=== PATIENT | male | born 1930 | race Caucasian/White ===

== ENCOUNTER 2017-09-25 10:06 | Day surgery (SDC) | payer MEDICARE ==
[~2017-09-25 10:06] MED LIST: DIPHENHYDRAMINE HCL 50 MG/ML VIAL ONE; EPINEPHRINE INJ 1 MG/10 ML DISP.SYRIN ONE; FLUMAZENIL INJ 0.5 MG/5 ML VIAL ONE; GLUCAGON,HUMAN RECOMB 1 MG INJ ONE; NALOXONE HCL INJ/PF 0.4 MG/1 ML SDV ONE; ONDANSETRON HCL INJ/PF 4 MG/2 ML SDV ONE
[2017-09-25] MEDS: MIDAZOLAM 2 MG/2 ML INJ ONE ×3 (10:56→11:04)
[2017-09-25] MEDS: FENTANYL CITRATE INJ/PF 100 MCG/2 ML AMPUL ONE ×2 (10:58→11:00)
[2017-09-25 12:53] VITALS: BP 132/59
--- NOTE | 2017-09-25 13:58 | Operative Report ---
Operative Report DATE OF SURGERY: 09/25/17 Operative Report: The risks, benefits and alternatives of the procedure including risks of bleeding, perforation requiring surgery are explained to the patient in detail and informed consent is obtained. Patient is brought to the endoscopy suite and placed in a left, lateral decubital position. Conscious sedation medications are provided. A rectal examination is done which did not reveal any masses, tears or fissures. An Olympus videoscope was inserted into the patient's rectum. The scope was then carefully advanced all the way to the cecum. The cecum was identified by the usual anatomical landmarks including the ileocecal valve as well as the appendiceal office. Photodocumentation is obtained. The scope was then sequentially pulled back via the various segments of the colon including the ascending colon, hepatic flexure, transverse colon, splenic flexure, descending colon and finding to the rectosigmoid portions of the colon. Retroflexion maneuvers performed. PREOPERATIVE DIAGNOSIS: Weight loss abnormal CT scan POSTOPERATIVE DIAGNOSIS: Unusual turn at the area of the hepatic flexure likely accounting for the thickening that is seen on CT scan. Diverticulosis. Colon polyp noted at the junction of the sigmoid and descending colon removed via snare polypectomy and retrieved. Internal hemorrhoids. Colon mass noted at 20 cm, nonobstructing. Status post biopsy. Status post injection of Jennifer ink both proximal and distal to the lesion. OPERATION: Colonoscopy with snare polypectomy. Colonoscopy with submucosal injection. Colonoscopy with biopsy SURGEON: ABEL MARR ANESTHESIA: Moderate Sedation - 4 mg of Versed, 25 mcg of fentanyl. Conscious sedation monitoring time 30 minutes. TISSUE REMOVED OR ALTERED: As noted above. COMPLICATIONS: None. ESTIMATED BLOOD LOSS: None. INTRAOPERATIVE FINDINGS: As noted above. PROCEDURE: Patient tolerated procedure well. No immediate postprocedure comp occasions are noted. Patient discharged in good condition. Discharge date 09/25/2017. Discharge diet: Regular. Discharge activity: Regular. 2-3 week follow-up to discuss findings. We will wait on the pathology. We will need surgical referral. Patient is instructed call the office or proceed to the emergency room should there be any further problems or questions. Metastatic workup is indicated.
== END 2017-09-25 12:40 | disposition home or self-care (01) ==
LOC: END 10:06
PROVIDERS: ATTEND Internal Medicine Gastroenterology
PROC: 0DBM8ZX Excision of Descending Colon, Via Natural or Artificial Opening Endoscopic, Diagnostic (ICD-10-PCS; principal; 2017-09-25 10:30)
PROC: 0DBN8ZX Excision of Sigmoid Colon, Via Natural or Artificial Opening Endoscopic, Diagnostic (ICD-10-PCS; 2017-09-25 10:30)
PROC: 3E0H8GC Introduction of Other Therapeutic Substance into Lower GI, Via Natural or Artificial Opening Endoscopic (ICD-10-PCS; 2017-09-25 10:30)
DX: C18.7 Malignant neoplasm of sigmoid colon (principal); K63.5 Polyp of colon; K57.30 Diverticulosis of large intestine without perforation or abscess without bleeding; K64.8 Other hemorrhoids; R93.8 Abnormal findings on diagnostic imaging of other specified body structures; R63.4 Abnormal weight loss; I10 Essential (primary) hypertension; Z68.22 Body mass index [BMI] 22.0-22.9, adult
CPT/HCPCS: 45380; 45385; 45381; 88305 ×2; J2250; J3010; J0171; J1200; J1610; J2310; J2405; J3490

== ENCOUNTER → 2017-10-01 | Outpatient (CLI) | payer MEDICARE ==
--- NOTE | 2017-10-02 09:24 | RADIOLOGY REPORT (SQ) ---
EXAM DESCRIPTION: PET CT SKULL/THIGH COMPLETED DATE/TIME: 10/01/2017 7:48 pm REASON FOR STUDY: C18.9 MALIGNANT NEOPLASM OF COLON, UNSPECIFIED C18.9 MALIGNANT NEOPLASM OF COLON, UNSPECIFIED COMPARISON: None available. Office notes mention prior CT abdomen pelvis 04/15/2017 RADIONUCLIDE AND DOSE: 11.2 mCi F18 FDG The route of agent administration: Intravenous FASTING BLOOD SUGAR: 83 mg/dl CONTRAST TYPE AND DOSE: No CT contrast given. TECHNIQUE: Blood glucose level was verified. Above dose of FDG was injected intravenously. 2-D seg mented attenuation correction images were obtained from the base of the skull to the midthighs. Nonc ontrast CT images were obtained for attenuation correction and fusion with emission images. CT image s were performed without oral or intravenous contrast and are not sensitive for parenchymal lesions. A series of overlapping emission PET images were obtained. Images reviewed and manipulated at [facility] work station by the radiologist. Images stored on PACS. LIMITATIONS: None. FINDINGS: HEAD AND NECK: No areas of abnormal metabolic activity in the soft tissues of the head and neck. CHEST: No areas of abnormal metabolic activity in the chest. ABDOMEN AND PELVIS: In the distal sigmoid colon, circumferential wall thickening and luminal narrowin g is present from a malignant appearing mass with SUV of 10.8. In the mid sigmoid colon, a 1 to 2 cm focus of increased activity is present without discrete radiogr aphic mass, SUV 5.8. This could represent a 2nd focus of malignancy or inflammation along the divert iculum. No metabolically active mesenteric adenopathy or pelvic adenopathy. Non metabolic 13 mm right lower pole renal nodule. PROXIMAL LOWER EXTREMITIES: No areas of abnormal metabolic activity in the soft tissues of the lower extremities. BONES: No abnormal metabolic activity in the visualized skeleton. ADDITIONAL CT FINDINGS: Atherosclerotic coronary artery calcification. Hiatal hernia. Biliary ducta l dilatation intra and extrahepatic. Right inguinal hernia containing nonobstructed small bowel loop s. OTHER: Liver background activity 1.3 SUV. Blood pool background activity 0.9 SUV IMPRESSION: Circumferential wall thickening and luminal narrowing along the distal sigmoid colon com patible with adenocarcinoma, SUV 10.8. Second, smaller focus of increased activity more proximally in the sigmoid colon, nonspecific. This could be related to diverticular inflammation or tumor No PET-CT evidence of distant metastatic disease given history of colon cancer TECHNICAL DOCUMENTATION: JOB ID: [id number] [employer]- All Rights Reserved Reading location - IP/workstation name: [email or web address]
== END ==
LOC: RAD 17:53
PROVIDERS: ATTEND Internal Medicine Medical Oncology
DX: C18.9 Malignant neoplasm of colon, unspecified (principal)
CPT/HCPCS: 78815; A9552

== ENCOUNTER → 2017-10-10 | Outpatient (CLI) | payer MEDICARE ==
[2017-10-10 13:13] LABS: ALANINE AMINOTRANSFERASE 78 U/L (21-72); ALBUMIN 3.2 g/dL (3.5-5.0); ALKALINE PHOSPHATASE 1124 U/L (38-126); ASPARTATE AMINO TRANSFERASE 116 U/L (17-59); BILIRUBIN,DIRECT 6.1 mg/dL (0.0-0.4); BILIRUBIN,TOTAL 7.2 mg/dL (0.2-1.3)
== END ==
LOC: OD 11:46
PROVIDERS: ATTEND Surgery
DX: C18.7 Malignant neoplasm of sigmoid colon (principal)
CPT/HCPCS: 36415; 80076

== ENCOUNTER 2017-12-11 08:30 | Inpatient (IN) | payer MEDICARE ==
[2017-12-04 10:55] LABS: HEMATOCRIT 37.2 % (37.9-51.0); HEMOGLOBIN 12.7 g/dL (13.5-17.0); MEAN CORPUSCULAR HEMOGLOBIN 32.8 pg (27.0-33.4); MEAN CORPUSCULAR HGB CONC 34.2 g/dL (32.0-36.0); MEAN CORPUSCULAR VOLUME 96 fl (80-97); PLATELET COUNT 242 10^3/uL (150-450); RED BLOOD COUNT 3.88 10^6/uL (4.35-5.55); RED CELL DISTRIBUTION WIDTH 17.3 % (11.5-14.0); WHITE BLOOD COUNT 4.8 10^3/uL (4.0-10.5)
[2017-12-04 11:09] LABS: ANION GAP 6 (5-19); BLOOD UREA NITROGEN 14 mg/dL (7-20); CARBON DIOXIDE 28 mmol/L (22-30); CHLORIDE 101 mmol/L (98-107); GLUCOSE 97 mg/dL (75-110); POTASSIUM 4.7 mmol/L (3.6-5.0); SODIUM 135.3 mmol/L (137-145)
--- NOTE | 2017-12-04 11:43 | EKG REPORT ---
SEVERITY:- ABNORMAL ECG - SINUS RHYTHM LEFT AXIS DEVIATION LEFT VENTRICULAR HYPERTROPHY BORDERLINE T ABNORMALITIES, INFERIOR LEADS : Confirmed by: Saira Anderson MD 04-Dec-2017 11:42:58
[~2017-12-11 08:30] MED LIST changes: +AMPICILLIN SODIUM/SULBACTAM NA 3 GM in NORMAL SALINE 50 ML IV PRN; -DIPHENHYDRAMINE HCL 50 MG/ML VIAL ONE; -EPINEPHRINE INJ 1 MG/10 ML DISP.SYRIN ONE; -FLUMAZENIL INJ 0.5 MG/5 ML VIAL ONE; -GLUCAGON,HUMAN RECOMB 1 MG INJ ONE; +LACTATED RINGERS 1000 ML IV PRN; -NALOXONE HCL INJ/PF 0.4 MG/1 ML SDV ONE; -ONDANSETRON HCL INJ/PF 4 MG/2 ML SDV ONE
[2017-12-11] MEDS ORDERED: GLYCOPYRROLATE 1 MG/5 ML SYRINGE ONE (10:31)
[2017-12-11] MEDS ORDERED: NEOSTIGMINE METHYLSULFATE 10 MG/10 ML VIAL ONE (10:31)
[2017-12-11] MEDS ORDERED: SUCCINYLCHOLINE CHLORIDE INJ 200 MG/10 ML VIAL ONE (10:31)
[2017-12-11] MEDS ORDERED: VECURONIUM BROMIDE INJ 10 MG VIAL IV ONE (10:31)
[2017-12-11] MEDS ORDERED: KETOROLAC TROMETHAMINE 60 MG/2 ML SDV ONE (10:57)
[2017-12-11] MEDS ORDERED: FENTANYL CITRATE INJ/PF 100 MCG/2 ML AMPUL ONE ×2 (10:57→16:56)
[2017-12-11] MEDS ORDERED: PROPOFOL INJ 200 MG/20 ML VIAL IV ONE (10:58)
[2017-12-11] MEDS ORDERED: ONDANSETRON HCL INJ/PF 4 MG/2 ML SDV ONE (10:58)
[2017-12-11] MEDS ORDERED: MIDAZOLAM 2 MG/2 ML INJ ONE (10:58)
[2017-12-11] MEDS ORDERED: DEXAMETHASONE SOD PHOSPHATE INJ 4 MG/1 ML VIAL ONE (10:58)
[2017-12-11] MEDS ORDERED: BUPIVACAINE HCL 0.5 % INJ/PF 30 ML SDV ONE (11:25)
[2017-12-11] MEDS ORDERED: BUPIVACAINE INJ/PF LIPOSOME/PF 266 MG/20 ML SDV ONE (11:25)
[2017-12-11] MEDS ORDERED: OXYCODONE-ACETAMINOPHEN 5-325 MG TABLET PO PRN ×2 (12:24)
[2017-12-11] MEDS ORDERED: ONDANSETRON HCL INJ/PF 4 MG/2 ML SDV IV PRN (12:24)
[2017-12-11] MEDS ORDERED: MORPHINE SULFATE 10 MG/ML INJ IV PRN (12:24)
[2017-12-11] MEDS ORDERED: FENTANYL CITRATE INJ/PF 100 MCG/2 ML AMPUL IV PRN ×3 (12:24)
[2017-12-11] MEDS ORDERED: MEPERIDINE HCL/PF INJ 25 MG/1 ML DISP.SYRIN IV PRN (12:24)
[2017-12-11] MEDS ORDERED: PROMETHAZINE HCL INJ 25 MG/1 ML VIAL IV PRN ×2 (12:24)
[2017-12-11] MEDS ORDERED: DIPHENHYDRAMINE HCL 50 MG/ML VIAL IV PRN (12:24)
[2017-12-11] MEDS ORDERED: DEXTROSE 40% GEL 15 GM TUBE PO PRN ×2 (16:29)
[2017-12-11] MEDS ORDERED: DEXTROSE 50%-WATER 25 GM/50 ML DISP.SYRIN IV PRN ×2 (16:29)
[2017-12-11] MEDS ORDERED: GLUCAGON,HUMAN RECOMB 1 MG INJ SUBCUT PRN (16:29)
[2017-12-11] MEDS ORDERED: DEXTROSE 5%-LACTATED RINGERS 1,000 ML IV PRN (16:29)
[2017-12-11] MEDS ORDERED: KETOROLAC TROMETHAMINE INJ/PF 30 MG/1 ML SDV IV SCH (16:30)
[2017-12-11] MEDS ORDERED: PHARMACY COMMUNICATION ORDER MC NR (16:30)
[2017-12-11] MEDS ORDERED: ACETAMINOPHEN 1,000 MG/100 ML RTUPB IV ONE (17:17)
[2017-12-11] MEDS ORDERED: KETOROLAC TROMETHAMINE INJ/PF 30 MG/1 ML SDV ONE (17:17)
--- NOTE | 2017-12-11 17:21 | Operative Report ---
Operative Report DATE OF SURGERY: 12/11/17 PREOPERATIVE DIAGNOSIS: 1. Sigmoid colon adenocarcinoma. 2. History of sigmoid colon polyp. 3. Scattered sigmoid and left colon diverticulosis POSTOPERATIVE DIAGNOSIS: Same with: 1. Thickening of the proximal sigmoid colon. 2. Retained sigmoid polyp. 3. 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 Exploratory laparotomy. 2. Sigmoid colectomy. 3. Upper rectal resection(low anterior resection). 4. [place]-rectal anastomosis with 33 EEA stapler. 5. Drainage of pelvis. 6. Diverting terminal ileostomy. 7. Mobilization of the splenic flexure. SURGEON: POOL CALDERON 1ST TAKER DOWN: [place] ROMAN ANESTHESIA: GA TISSUE REMOVED OR ALTERED: 1. Specimen A sigmoid colon. 2. Specimen B upper rectum COMPLICATIONS: None ESTIMATED BLOOD LOSS: 275 cc INTRAOPERATIVE FINDINGS: See below PROCEDURE: The patient was taken from the preop holding her to the main operating room where general anesthesia was induced. Arms were tucked to the patient's side, patient placed in the lithotomy position and leg secured. Rectal exam was performed by Dr. Calderon. There was a copious amount of semisolid brown stool which was irrigated using a large red Hobbs catheter and then a 28 Irish Tapia catheter. A significant amount of stool flecks and stool balls were removed.. A Tapia catheter was inserted. The abdomen was prepped and draped in sterile fashion. Surgical plan and surgical timeout were conducted. The abdomen was opened through a standard midline incision slightly above and predominately below the umbilicus. Bookwalter retractor was established and visual and manual inspection of the peritoneal cavity was undertaken. Findings were significant for no evidence of metastatic disease, no palpable abnormalities involving either lobe of the liver. Nasogastric tube was installed and secured into position with the tip in the mid body of the stomach. The small bowel was packed off to the right upper quadrant with the retractor system. Exposure of the sigmoid colon was achieved. There was a thickening of the mid sigmoid colon with a masslike effect. There was tethering to the left pelvic sidewall. I felt like this represented the target lesion. We mobilized the sigmoid colon in the standard fashion using a combination of blunt and cautery dissection. The retroperitoneum was opened laterally, and the line of dissection along the white line of Toldt taken up to the descending colon. The distal sigmoid colon was freed up towards the rectosigmoid junction. A suitable site for division of the bowel was chosen proximal to the first portion of the sigmoid colon. The left colon-sigmoid colon junction was divided with a YONATHAN 55 stapler. The mesocolon to the sigmoid was then scored medially and laterally and the mesocolon was taken down between clamps, and 0 and 2-0 Vicryl ties. The left ureter was visualized in its usual location and kept out of harm's way. We continue to mobilize the distal sigmoid colon and upper rectum to the point of the lumens of the tenia coli. The more distal rectum was pexed down into the deep pelvis anteriorly against the pelvic reflection. Suitable site for division of the sigmoid colon at the upper rectum was chosen and a single firing of the TA 60 stapler was then performed dividing the sigmoid colon from the upper rectum. The specimen was taken off the table by Dr. Calderon and examined. He open the specimen longitudinally and the findings were significant for an area of thickening circumferentially of the sigmoid colon approximately 8 cm from the proximal staple line, with associated diverticulosis. There was no Jennifer ink. The findings were consistent with inflammatory disease likely from previous acute diverticulitis. Approximately 16 cm from the proximal staple line of transection of the specimen was a pedunculated 1/2-2 cm polyp. I felt that the cancer was not within this specimen I now performed rigid sigmoidoscopy. There was a moderate amount of stool still in the anorectal canal. This was irrigated out as best we could. I advanced the scope up to approximately 12 cm and there was poor visualization of the lumen. This was distal to our stapled rectal stump. I felt that the patient had a lesion in the residual rectal stump and this needed further investigation. The rigid sigmoidoscope was removed Dr. Calderon scrubbed back into the case and we began now performing a low anterior resection of the upper rectum. We scored the needle reflection and took the level of dissection down into the true pelvis. Once the peritoneal reflection was opened, we used LigaSure and blunt dissection to dissect the upper rectum, taking the lateral stalks, and the mesorectum with the LigaSure device. At this point I went back down below with the rigid sigmoidoscope and confirmed the pathology was within the last portion of the upper rectum. The tip of the rigid sigmoidoscope at approximately 10 cm from the anal verge appeared to be below the pathology. And I could not advance the rigid sigmoidoscope past the pathology which at this point appeared to be consistent with the previously diagnosed malignancy on preoperative colonoscopy. I scrubbed back again, and confirmed the mobilized upper rectum transitioning to the mid rectum was sufficient to get a stapler below tumor with a acceptable margin. We therefore retracted up on the rectal stump, and fired the TA 60 stapler below the pathology with proximately 2 cm margin. The upper rectum was transected, and examined by Dr. kumar on the back table. He open his specimen longitudinally. This now contained the near obstructing colon cancer previously thought to be a 20 cm from the anal verge. There was in the Inc. associated with this tumor. We placed a stitch at the proximal end of the rectal stump. Of note specimen A, the sigmoid colon, also had a stitch placed in the proximal end of the resection. This is for orientation by the pathologist. The specimen was sent to Dr. Vasquez in the path lab and she confirmed the malignancy, with the distal margin being approximately 1.8 cm from the inferior end of the tumor. We reinspected the pelvis and felt that the resection was complete. Retrospect the primary cancer, the near obstructing adenocarcinoma, was actually of the mid to upper rectum rather than the sigmoid colon. Of note Dr. Vasquez examined the first specimen, the sigmoid colon, and confirmed there was a pedunculated polyp and some inflammatory changes but no obvious cancer. We now proceeded with the colorectal anastomosis. Prior to this however we did mobilize the descending colon as well as the splenic flexure proper using a combination of blunt, electrocautery and LigaSure dissection. We took the distal transverse colon off of the gastrocolic omentum. Splenic flexure came down nicely. This was performed all under minimal tension. Once this was accomplished in the left colon laid down into the pelvis without tension We now proceeded with a formal anastomosis. We cleared some of the colonic fat off of the distal left colon. We now applied the pursestring stapler of the distal left colon. The stapler was deployed, and the lumen inspected. There was a mild to moderate amount of green stool. This was aspirated. The caliber of the colon was very generous. It accepted a 25, a 29, and even a 33 mm diameter obturator. We now brought onto the field a non- Ethicon EEA stapler. The distal component was brought onto the field, set into the lumen of the distal left colon, and the pursestring secured. Pericolonic fat was excised as well as redundant distal bowel around the suture. We brought the colon down to the true pelvis without tension and without twisting. Dr. Calderon went down below and dilated up the anorectal canal to accept the 25, 29, and 33 mm obturators without difficulty. We then advanced the stapler into the anorectal canal with ease, and brought it up against the mid rectal stump. The pin was brought through the rectal stump just at the staple line in mid position. We brought the proximal colon down, locked the upper component to the anvil, and the stapler was closed to the appropriate tension. The stapler was fired uneventfully, then released from the patient's anorectal canal with all components intact. On the back table Dr. Calderon inspected the stapler, and there were 2 doughnuts , the upper donut intact but only through a staple bridge. The distal donut was more substantive with a nice healthy ring of tissue. We now inspected the anastomosis. Dr. Calderon went below with a rigid sigmoidoscope, while teammates held compression on the descending colon, and the pelvis filled with water. As soon as we introduced the rigid sigmoidoscope , and insufflated some air, there were significant air bubbles coming up from the anastomosis. Dr. Calderon went up above after re-scrubbing, and inspected the anastomosis. We identified a defect in the anastomosis, where the proximal descending colon had pulled away from the staple line on the left lateral-posterior position. This was a approximately 1.5 cm defect. The explanation for this is uncertain. It is possible that with the closure of the anvil, the tissue pulled away from the purse-string causing the defect. Nonetheless I felt that a handsewn repair was indicated. Therefore this was affected by Dr. Calderon using 3-0 PDS sutures. The inner layer was affected in a running fashion, and then outer layer with 4 interrupted 3-0 PDS sutures. The remainder the anastomosis appeared intact. There was no significant tension, and the distal colon as well as the mid rectum appeared viable. Dr. Calderon went below, performed a rigid sigmoidoscopy, visualize the anastomosis but did not traverse it with the scope. We reinsufflated the colorectal anastomosis with air after filling the pelvis with water and there is no evidence of leak. The anastomosis appeared widely patent. I felt the operation was nearly complete, however given the patient's age, 4 hour operation, and the thick residual stool present in the left colon despite the bowel prep, I believed that a protective ileostomy was indicated. Again, the upper rectal cancer was near obstructing, preventing the patient from getting a complete bowel prep. We did place a drain in the pelvis and brought out to through the left lower quadrant suprapubic area which was a 15 blade and secured it to skin with a 2-0 Prolene suture. The terminal ileum was identified with confidence. The terminal ileum was transected approximately 10 cm from the ileocolic junction. A suitable site for diverting ileostomy was is chosen, skin hole with electrocautery, and the anterior and posterior rectus sheath opened longitudinally with electrocautery. Allison clamp was used to bring the proximal ileum out through the anterior abdominal wall. Of note we did close several mesenteric defects in the mid left mesocolon with 2 -0 Vicryl suture. We felt the operation was complete. We confirmed appropriate placement of the anastomotic drain, as well as the nasogastric tube. Bleeding was negligible at this point. We closed the abdominal wall fascia with 2 #1 double-stranded PDS sutures and skin approximated tonja. The ileostomy was matured by opening the staple line of the transected ileum, and maturing it with 4-0 Vicryl suture 8. 40 cc of diluted Exparel was injected in subcutaneous tissue. Ileostomy appliance was applied. The operation was deemed complete. Sponge and needle counts are correct. Appropriate sterile dressings were applied, and patient extubated, taken recovery in stable condition. Total operative time 4-1/2 hours. The physician certified teacher assistant, Ms. Lopez, provided assistance during this case by: Assisting with retracting tissue, instillation of local anesthesia and closure of skin incisions.
[2017-12-11] MEDS: ACETAMINOPHEN INJ/PF 1000 MG/100 ML SDV IV SCH ×2 (18:56→23:28)
[2017-12-11] MEDS: MORPHINE SULFATE 10 MG/ML INJ IV PRN (23:28)
[2017-12-12 04:46] LABS: ABSOLUTE LYMPHOCYTES (AUTO) 0.7 10^3/uL (0.5-4.7); ABSOLUTE NEUT (AUTO) 12.1 10^3/uL (1.7-8.2); BASOPHILS % (AUTO) 0.2 % (0-2); HEMATOCRIT 33.5 % (37.9-51.0); HEMOGLOBIN 11.4 g/dL (13.5-17.0); LYMPHOCYTES % (AUTO) 5.2 % (13-45); MEAN CORPUSCULAR HEMOGLOBIN 32.7 pg (27.0-33.4); MEAN CORPUSCULAR HGB CONC 34.2 g/dL (32.0-36.0); MEAN CORPUSCULAR VOLUME 96 fl (80-97); MONOCYTES % (AUTO) 7.6 % (3-13); PLATELET COUNT 349 10^3/uL (150-450); RED CELL DISTRIBUTION WIDTH 16.9 % (11.5-14.0); TOTAL CELLS COUNTED % (AUTO) 100 %; WHITE BLOOD COUNT 13.9 10^3/uL (4.0-10.5)
[2017-12-12] MEDS: ACETAMINOPHEN INJ/PF 1000 MG/100 ML SDV IV SCH ×2 (05:32→14:34)
[2017-12-12] MEDS ORDERED: NORMAL SALINE 1000 ML 1,000 ML IV PRN ×2 (05:53→21:00)
[2017-12-12 06:25] LABS: ANION GAP 6 (5-19); BLOOD UREA NITROGEN 13 mg/dL (7-20); CALCIUM 8.1 mg/dL (8.4-10.2); CARBON DIOXIDE 22 mmol/L (22-30); CHLORIDE 107 mmol/L (98-107); GLUCOSE 158 mg/dL (75-110); POTASSIUM 4.2 mmol/L (3.6-5.0); SODIUM 134.8 mmol/L (137-145)
[2017-12-12] MEDS: MORPHINE SULFATE 10 MG/ML INJ IV PRN (08:30)
--- NOTE | 2017-12-12 09:29 | PDOC PROGRESS REPORT ---
Subjective Progress Note for:: 12/12/17 Subjective:: No specific complaints; required 1 dose of narcotic this morning; urine output low, got IV fluid bolus earlier this morning Reason For Visit: C18.7 MALIGNANT NEOPLASM OF SIGMOID COLON Physical Exam Vital Signs: Temp Pulse Resp BP Pulse Ox 98.3 F 77 16 111/47 L 99 12/12/17 07:29 12/12/17 07:29 12/12/17 07:29 12/12/17 07:29 12/12/17 07:29 Intake & Output 12/11/17 12/12/17 12/13/17 06:59 06:59 06:59 Intake Total 55692 Output Total 13457 Balance -630 General appearance: PRESENT: no acute distress GI/Abdominal exam: PRESENT: other - Midline dressing with minimal blood tinged stain; left pelvic drain with serous sanguinous fluid. Ileostomy pink, with brisk output. Psychiatric exam: PRESENT: other - Patient appropriate oriented Results Laboratory Results: 12/12/17 03:53 12/12/17 03:53 12/12/17 12/12/17 03:53 03:53 WBC 13.9 H RBC 3.50 L Hgb 11.4 L Hct 33.5 L MCV 96 MCH 32.7 MCHC 34.2 RDW 16.9 H Plt Count 349 Seg Neutrophils % 87.0 H Lymphocytes % 5.2 L Monocytes % 7.6 Eosinophils % 0.0 Basophils % 0.2 Absolute Neutrophils 12.1 H Absolute Lymphocytes 0.7 Absolute Monocytes 1.0 Absolute Eosinophils 0.0 Absolute Basophils 0.0 Sodium 134.8 L Potassium 4.2 Chloride 107 Carbon Dioxide 22 Anion Gap 6 BUN 13 Creatinine 0.66 Est GFR ( Amer) > 60 Est GFR (Non-Af Amer) > 60 Glucose 158 H Calcium 8.1 L Assessment & Plan - Diagnosis (1) Rectal carcinoma Is this a current diagnosis for this admission?: Yes Plan: Impression: Patient is 1 day status post combined sigmoid and low anterior resection of the upper rectum for concomitant sigmoid colon polyp, thickened sigmoid colon likely due to near obstructing upper rectal carcinoma, with protective ileostomy; no immediate postoperative complications; mild leukocytosis, otherwise acceptable laboratory profile. Urine output low likely due to third spacing Recommendations: 1. Clamp NG tube; anticipate removal later today 2. Increase pulmonary toilet, provide coughing pillow; begin out of bed gentle ambulation 3. Explained intraoperative findings, and technical aspects of the operation and need for protective ileostomy, likely temporary, to the patient; he expresses his understanding. This was also discussed with patient's daughter after the operation yesterday 4. Watch urine output. 5. Continue I the acetaminophen; continue postop as soon for 24 hours.
[2017-12-12] MEDS: NORMAL SALINE 1000 ML 1,000 ML IV PRN ×2 (09:48→18:20)
[2017-12-12] MEDS: ENOXAPARIN SODIUM INJ 40 MG/0.4 ML DISP.SYRIN SUBCUT SCH (09:48)
[2017-12-12] MEDS: BENAZEPRIL HCL 20 MG TABLET PO SCH (09:49)
[2017-12-12] MEDS: DOXAZOSIN MESYLATE 4 MG TABLET PO SCH (09:49)
[2017-12-12] MEDS: LORATADINE 10 MG TABLET PO SCH (09:49)
[2017-12-12] MEDS ORDERED: (PENDING PHARMACY ID) (Vit C/E/Zn/Coppr/Lutein/Zeaxan [Preservision Areds 2 Softgel] 1 EAC PO SCH (10:00)
[2017-12-12] MEDS: CIPROFLOXACIN 400 MG/D5W RTU 400 MG/200 ML RTUPB IV SCH ×2 (12:20→22:15)
[2017-12-12] MEDS ORDERED: KETOROLAC TROMETHAMINE INJ/PF 30 MG/1 ML SDV IV PRN (14:00)
[2017-12-12] MEDS ORDERED: AMPICILLIN SODIUM/SULBACTAM NA 3 GM in NORMAL SALINE 100 ML IV SCH (14:00)
[2017-12-12] MEDS ORDERED: ACETAMINOPHEN 1,000 MG/100 ML RTUPB IV ONE (14:30)
[2017-12-12] MEDS: ACETAMINOPHEN 1,000 MG/100 ML RTUPB IV SCH (18:20)
[2017-12-13] MEDS: ACETAMINOPHEN 1,000 MG/100 ML RTUPB IV SCH ×5 (00:36→23:12)
[2017-12-13] MEDS: NORMAL SALINE 1000 ML 1,000 ML IV PRN ×3 (04:03→17:40)
[2017-12-13 07:32] LABS: ABSOLUTE EOSINOPHILS # (AUTO) 0.2 10^3/uL (0.0-0.6); ABSOLUTE LYMPHOCYTES (AUTO) 0.9 10^3/uL (0.5-4.7); ABSOLUTE MONOCYTES (AUTO) 0.8 10^3/uL (0.1-1.4); ABSOLUTE NEUT (AUTO) 8.2 10^3/uL (1.7-8.2); BASOPHILS % (AUTO) 0.4 % (0-2); EOSINOPHILS % (AUTO) 2.3 % (0-6); HEMATOCRIT 29.8 % (37.9-51.0); LYMPHOCYTES % (AUTO) 8.6 % (13-45); MEAN CORPUSCULAR HEMOGLOBIN 32.3 pg (27.0-33.4); MEAN CORPUSCULAR HGB CONC 33.7 g/dL (32.0-36.0); MEAN CORPUSCULAR VOLUME 96 fl (80-97); MONOCYTES % (AUTO) 8.3 % (3-13); PLATELET COUNT 316 10^3/uL (150-450); RED CELL DISTRIBUTION WIDTH 16.7 % (11.5-14.0); SEGMENTED NEUTROPHILS % (AUTO) 80.4 % (42-78); TOTAL CELLS COUNTED % (AUTO) 100 %; WHITE BLOOD COUNT 10.2 10^3/uL (4.0-10.5)
[2017-12-13 07:53] LABS: BLOOD UREA NITROGEN 10 mg/dL (7-20); CALCIUM 7.8 mg/dL (8.4-10.2); GLUCOSE 79 mg/dL (75-110); POTASSIUM 3.9 mmol/L (3.6-5.0)
[2017-12-13 07:59] LABS: CARBON DIOXIDE 23 mmol/L (22-30); CHLORIDE 108 mmol/L (98-107); SODIUM 135.3 mmol/L (137-145)
[2017-12-13 08:03] LABS: ANION GAP 4 (5-19)
[2017-12-13] MEDS: ENOXAPARIN SODIUM INJ 40 MG/0.4 ML DISP.SYRIN SUBCUT SCH (09:05)
[2017-12-13] MEDS: BENAZEPRIL HCL 20 MG TABLET PO SCH (09:06)
[2017-12-13] MEDS: CIPROFLOXACIN 400 MG/D5W RTU 400 MG/200 ML RTUPB IV SCH (09:06)
[2017-12-13] MEDS: LORATADINE 10 MG TABLET PO SCH (09:06)
[2017-12-13] MEDS: DOXAZOSIN MESYLATE 4 MG TABLET PO SCH (09:06)
--- NOTE | 2017-12-13 18:07 | PDOC PROGRESS REPORT ---
Subjective Progress Note for:: 12/13/17 Reason For Visit: C18.7 MALIGNANT NEOPLASM OF SIGMOID COLON Patient doing well, ambulating, tolerated NG tube out. Tapia catheter and pelvic drain still in place. Urine output clearing up. Physical Exam Vital Signs: Temp Pulse Resp BP Pulse Ox 97.8 F 72 17 138/59 H 97 12/13/17 16:00 12/13/17 16:00 12/13/17 16:00 12/13/17 16:00 12/13/17 16:00 Intake & Output 12/12/17 12/13/17 12/14/17 06:59 06:59 06:59 Intake Total 99929 4800 2300 Output Total 83299 1580 Balance -805 3220 2300 Weight 72.1 kg General appearance: PRESENT: no acute distress GI/Abdominal exam: PRESENT: other - Abdomen examined. Midline dressing dry; will be replaced; drain lower quadrant serosanguineous fluid; ileostomy is healthy pink with acceptable output. Results Laboratory Results: 12/13/17 06:20 12/13/17 06:20 12/13/17 12/13/17 06:20 06:20 WBC 10.2 RBC 3.10 L Hgb 10.0 L Hct 29.8 L MCV 96 MCH 32.3 MCHC 33.7 RDW 16.7 H Plt Count 316 Seg Neutrophils % 80.4 H Lymphocytes % 8.6 L Monocytes % 8.3 Eosinophils % 2.3 Basophils % 0.4 Absolute Neutrophils 8.2 Absolute Lymphocytes 0.9 Absolute Monocytes 0.8 Absolute Eosinophils 0.2 Absolute Basophils 0.0 Sodium 135.3 L Potassium 3.9 Chloride 108 H Carbon Dioxide 23 Anion Gap 4 L BUN 10 Creatinine 0.67 Est GFR ( Amer) > 60 Est GFR (Non-Af Amer) > 60 Glucose 79 Calcium 7.8 L Assessment & Plan - Diagnosis (1) Rectal carcinoma Is this a current diagnosis for this admission?: Yes Plan: Patient is now 2 days status post exploratory laparotomy, sigmoid and low anterior resection of the rectum, with protective ileostomy, doing well, no complications with acceptable laboratory profile. Recommendations: 1. Continue ambulation 2. Discontinue Tapia catheter at 06 100 in the morning 3. We will start clear liquids. 4. Start p.o. pain medication
[2017-12-14] MEDS: NORMAL SALINE 1000 ML 1,000 ML IV PRN ×3 (05:05→23:04)
[2017-12-14] MEDS: ACETAMINOPHEN 1,000 MG/100 ML RTUPB IV SCH ×4 (05:05→23:04)
[2017-12-14] MEDS: BENAZEPRIL HCL 20 MG TABLET PO SCH (09:04)
[2017-12-14] MEDS: DOXAZOSIN MESYLATE 4 MG TABLET PO SCH (09:04)
[2017-12-14] MEDS: ENOXAPARIN SODIUM INJ 40 MG/0.4 ML DISP.SYRIN SUBCUT SCH (09:04)
[2017-12-14] MEDS: LORATADINE 10 MG TABLET PO SCH (09:04)
--- NOTE | 2017-12-14 22:52 | PDOC PROGRESS REPORT ---
Subjective Progress Note for:: 12/14/17 Subjective:: more comfortable Reason For Visit: C18.7 MALIGNANT NEOPLASM OF SIGMOID COLON Physical Exam Vital Signs: Temp Pulse Resp BP Pulse Ox 98.7 F 84 17 135/69 H 98 12/14/17 19:00 12/14/17 19:00 12/14/17 19:00 12/14/17 19:00 12/14/17 19:00 Intake & Output 12/13/17 12/14/17 12/15/17 06:59 06:59 06:59 Intake Total 4800 5230 1821 Output Total 1580 6280 1300 Balance 3220 -1050 521 Weight 72.1 kg 78.4 kg Exam: Abdomen is soft minimal tenderness. Ileostomy functioning XUAN with some serosanguinous drainage Results Laboratory Results: 12/13/17 06:20 12/13/17 06:20 Assessment & Plan - Time Time Spent with patient: 15-24 minutes - Inpatient Certification Medical Necessity: Need For IV Fluids, Risk of Complication if Not Cared For in Hospital - Plan Summary Plan Summary: Gradually increase po intake Leave drain for now Continue IVF
[2017-12-15] MEDS: ACETAMINOPHEN 1,000 MG/100 ML RTUPB IV SCH ×2 (05:21→11:03)
[2017-12-15 06:15] LABS: BLOOD UREA NITROGEN 7 mg/dL (7-20); GLUCOSE 95 mg/dL (75-110); POTASSIUM 3.4 mmol/L (3.6-5.0)
[2017-12-15 06:20] LABS: CARBON DIOXIDE 24 mmol/L (22-30); CHLORIDE 106 mmol/L (98-107); SODIUM 134.3 mmol/L (137-145)
[2017-12-15 06:26] LABS: ANION GAP 4 (5-19)
[2017-12-15] MEDS: NORMAL SALINE 1000 ML 1,000 ML IV PRN ×2 (09:20→18:28)
[2017-12-15] MEDS: DOXAZOSIN MESYLATE 4 MG TABLET PO SCH (09:21)
[2017-12-15] MEDS: BENAZEPRIL HCL 20 MG TABLET PO SCH (09:21)
[2017-12-15] MEDS: LORATADINE 10 MG TABLET PO SCH (09:21)
[2017-12-15] MEDS: ENOXAPARIN SODIUM INJ 40 MG/0.4 ML DISP.SYRIN SUBCUT SCH (09:22)
--- NOTE | 2017-12-15 15:31 | PDOC PROGRESS REPORT ---
Subjective Progress Note for:: 12/15/17 Subjective:: Minimal pains Reason For Visit: C18.7 MALIGNANT NEOPLASM OF SIGMOID COLON Physical Exam Vital Signs: Temp Pulse Resp BP Pulse Ox 98.2 F 82 17 117/61 99 12/15/17 11:23 12/15/17 11:23 12/15/17 11:23 12/15/17 11:23 12/15/17 11:23 Intake & Output 12/14/17 12/15/17 12/16/17 06:59 06:59 06:59 Intake Total 5230 3293 1000 Output Total 6280 3040 275 Balance -1050 253 725 Weight 78.4 kg Exam: abd soft nontender. Incision is clean and dry Ileostomy draining greenish fluid XUAN draine 275 ccs of serosanguinous fluid Results Laboratory Results: 12/13/17 06:20 12/15/17 05:36 12/15/17 05:36 Sodium 134.3 L Potassium 3.4 L Chloride 106 Carbon Dioxide 24 Anion Gap 4 L BUN 7 Creatinine 0.60 Est GFR ( Amer) > 60 Est GFR (Non-Af Amer) > 60 Glucose 95 Calcium 8.0 L Assessment & Plan - Time Time Spent with patient: 15-24 minutes - Inpatient Certification Medical Necessity: Need Close Monitoring Due to Risk of Patient Decompensation, Risk of Complication if Not Cared For in Hospital - Plan Summary Plan Summary: Patient claims he will not be able to take care of the ileostomy by himself. Will ask discharge planning nurse to have home care nurse to take care of ileostomy. Leave XUAN drain until further decreases drainage
[2017-12-16] MEDS: NORMAL SALINE 1000 ML 1,000 ML IV PRN (04:15)
[2017-12-16 06:05] LABS: ABSOLUTE EOSINOPHILS # (AUTO) 0.9 10^3/uL (0.0-0.6); ABSOLUTE LYMPHOCYTES (AUTO) 0.7 10^3/uL (0.5-4.7); ABSOLUTE MONOCYTES (AUTO) 0.5 10^3/uL (0.1-1.4); ABSOLUTE NEUT (AUTO) 8.6 10^3/uL (1.7-8.2); BASOPHILS % (AUTO) 0.4 % (0-2); EOSINOPHILS % (AUTO) 8.7 % (0-6); HEMATOCRIT 33.4 % (37.9-51.0); HEMOGLOBIN 11.4 g/dL (13.5-17.0); LYMPHOCYTES % (AUTO) 6.7 % (13-45); MEAN CORPUSCULAR HEMOGLOBIN 32.7 pg (27.0-33.4); MEAN CORPUSCULAR HGB CONC 34.2 g/dL (32.0-36.0); MEAN CORPUSCULAR VOLUME 96 fl (80-97); MONOCYTES % (AUTO) 4.6 % (3-13); PLATELET COUNT 360 10^3/uL (150-450); RED BLOOD COUNT 3.49 10^6/uL (4.35-5.55); RED CELL DISTRIBUTION WIDTH 16.3 % (11.5-14.0); SEGMENTED NEUTROPHILS % (AUTO) 79.6 % (42-78); TOTAL CELLS COUNTED % (AUTO) 100 %; WHITE BLOOD COUNT 10.8 10^3/uL (4.0-10.5)
[2017-12-16] MEDS: BENAZEPRIL HCL 20 MG TABLET PO SCH (09:17)
[2017-12-16] MEDS: LORATADINE 10 MG TABLET PO SCH (09:18)
[2017-12-16] MEDS: DOXAZOSIN MESYLATE 4 MG TABLET PO SCH (09:21)
[2017-12-16] MEDS: ENOXAPARIN SODIUM INJ 40 MG/0.4 ML DISP.SYRIN SUBCUT SCH (09:22)
--- NOTE | 2017-12-16 09:46 | DISCHARGE SUMMARY E ---
Discharge Summary NAME: RAZIA ALVAREZ : 1930 AGE: 87Y ADMITTED: 12/11/2017 DISCHARGED: 12/16/2017 REASON FOR ADMISSION: Adenocarcinoma of the rectum. SUMMARY OF HOSPITALIZATION: The patient is an 87-year-old white male with adenocarcinoma of the rectosigmoid area. He was taken to the operating room by Dr. Calderon to do same day surgery on 12/11/2017 where he underwent exploratory laparotomy, segmental sigmoid then upper rectal resection, colorectal anastomosis, protective ileostomy, and drain placement. He tolerated the procedure well. There are no immediate postoperative complications. The patient's drain was removed on postoperative day 3. The patient's ileostomy functioned satisfactorily, diet was advanced and he tolerated this well. His pain was adequately managed without narcotics. He was given Exparel at the conclusion of this operation. By the fourth postoperative day, he was ready for discharge home. FINAL DIAGNOSIS: Adenocarcinoma of the upper rectum; synchronous sigmoid colon polyp; chronic diverticulitis of the sigmoid colon status post sigmoid and low anterior resection of the upper rectum with colorectal anastomosis and diverting ileostomy. DISPOSITION: The patient will be discharged home in the care of his family. Follow up with Dr. Calderon in 1 week. Be taught ileostomy care, be on a regular diet, and he will take Tylenol or Motrin p.r.n. pain. DICTATING PHYSICIAN: POOL CALDERON M.D. [id number] PHY#: [id number] ID: [id number] JOB#: [id number] ACCT: [id number] cc:POOL CALDERON M.D. >
[2017-12-16 14:59] VITALS: BP 138/62
== END 2017-12-16 12:23 | disposition home health service (06) | DRG 330 ==
LOC: INOR 08:30 → EDSTATUS 10:30 → 5 18:26
PROVIDERS: ADMIT Surgery; ATTEND Surgery
PROC: 0DBP0ZZ Excision of Rectum, Open Approach (ICD-10-PCS; 2017-12-11)
PROC: 0D1B0Z4 Bypass Ileum to Cutaneous, Open Approach (ICD-10-PCS; 2017-12-11)
PROC: 0DJD8ZZ Inspection of Lower Intestinal Tract, Via Natural or Artificial Opening Endoscopic (ICD-10-PCS; 2017-12-11)
PROC: 0DTN0ZZ Resection of Sigmoid Colon, Open Approach (ICD-10-PCS; principal; 2017-12-11 10:30)
DX: C20 Malignant neoplasm of rectum (principal); K57.32 Diverticulitis of large intestine without perforation or abscess without bleeding; K63.5 Polyp of colon; K40.90 Unilateral inguinal hernia, without obstruction or gangrene, not specified as recurrent; Z88.0 Allergy status to penicillin; Z85.820 Personal history of malignant melanoma of skin
CPT/HCPCS: 36415; 80048; 82962; 840; 85025; 85027; 88305; 88307; 90686; 93005; 93010; 94799; C1758; C9290; J0131; J0295; J0330; J0744; J1100; J1650; J1885; J2250; J2270; J2405; J2704; J3010; J3490

== ENCOUNTER 2017-12-22 19:28 | Emergency (ER) | payer MEDICARE ==
--- NOTE | 2017-12-22 19:54 | ER Document Report ---
ED Medical Screen (RME) - General Chief Complaint: Inability to Void Stated Complaint: URINARY RETENTION Time Seen by Provider: 12/22/17 19:48 Mode of Arrival: Ambulatory Information source: Patient Notes: 87-year-old male presents with chief complaints of difficulty urinating. Patient states this started today. He states that he has had small amounts of trickling urine throughout the day. He does report a history of enlarged prostate, colon cancer which required a resection recently. Patient has associated suprapubic abdominal pain. I have greeted and performed a rapid initial assessment of this patient. A comprehensive ED assessment and evaluation of the patient, analysis of test results and completion of medical decision making process we will be contacted by additional ED providers. PHYSICAL EXAMINATION: Vital signs reviewed GENERAL: Well-appearing, well-nourished and in no acute distress. LUNGS: No respiratory distress Musculoskeletal: Normal range of motion NEUROLOGICAL: Normal speech, normal gait. PSYCH: Normal mood, normal affect. SKIN: Warm, Dry, normal turgor, no rashes or lesions noted. TRAVEL OUTSIDE OF THE [place] IN LAST 30 DAYS: No - HPI Onset: This morning Onset/Duration: Sudden Quality of pain: Pressure Severity: Mild Associated Symptoms: Abdominal pain. denies: Chest pain, Dysuria, Fever, Nausea Exacerbated by: Denies Relieved by: Denies - Related Data Smoking: Non-smoker Frequency of alcohol use: None Drug Abuse: None Allergies/Adverse Reactions: amoxicillin [From Augmentin] Allergy (Mild, Verified 09/25/17 10:20) Nausea clavulanic acid [From Augmentin] Allergy (Mild, Verified 09/25/17 10:20) Nausea Past Medical History - Past Medical History Cardiac Medical History: Reports: Hx Hypercholesterolemia, Hx Hypertension Denies: Hx Atrial Fibrillation, Hx Congestive Heart Failure, Hx Coronary Artery Disease, Hx Heart Attack, Hx Peripheral Vascular Disease, Hx Pulmonary Embolism, Hx Heart Murmur Pulmonary Medical History: Reports: Hx Pneumonia Denies: Hx Asthma, Hx Bronchitis, Hx COPD, Hx Respiratory Failure, Hx Sleep Apnea, Hx Tuberculosis Neurological Medical History: Denies: Hx Cerebrovascular Accident, Hx Seizures Renal/ Medical History: Reports: Hx Benign Prostatic Hyperplasia - ENLARGED PROSTATE. Denies: Hx End Stage Renal Disease, Hx Kidney Stones, Hx Peritoneal Dialysis Malignancy Medical History: Denies Hx Lung Cancer GI Medical History: Reports: Hx Hiatal Hernia. 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 Denies: Hx Appendectomy, Hx Bowel Surgery, Hx Cholecystectomy, Hx Colostomy, Hx Coronary Artery Bypass Graft , Hx Gastric Bypass Surgery, Hx Pacemaker, Hx Tonsillectomy - Immunizations Hx Diphtheria, Pertussis, Tetanus Vaccination: Yes History of Influenza Vaccine for 12/2016 - 05/2017 Season: Yes Influenza Administration Date for 12/2016 - 05/2017 Season: 12/16/16 Physical Exam - Vital signs Vitals: Temp Pulse Resp BP Pulse Ox 98 F 86 16 164/81 H 99 12/22/17 19:37 12/22/17 19:37 12/22/17 19:37 12/22/17 19:37 12/22/17 19:37 Course - Vital Signs Vital signs: Temp Pulse Resp BP Pulse Ox 98 F 86 16 164/81 H 99 12/22/17 19:37 12/22/17 19:37 12/22/17 19:37 12/22/17 19:37 12/22/17 19:37 Doctor's Discharge - Discharge Referrals: ALFONSO SALAZAR MD [Primary Care Provider] - Follow up as needed
[2017-12-22] MEDS ORDERED: LIDOCAINE 2% URO-JET 5 ML KIT MM ONE (20:31)
--- NOTE | 2017-12-22 21:08 | ER Document Report ---
ED General - General Chief Complaint: Inability to Void Stated Complaint: URINARY RETENTION Time Seen by Provider: 12/22/17 19:48 Mode of Arrival: Ambulatory Notes: Patient is an 87-year-old male with a recent partial colectomy with ileostomy placement, history of BPH who presents with 24 hours of urinary retention. The patient denies any dysuria or hematuria, states that if he pushes very hard to get dribbles of urine to come out but otherwise could not have a successful urination. Notes he has a history of similar symptoms in the past but not to this degree of severity. Nothing improves or worsen the symptoms. He notes prior to placement of the catheter he had a dull, throbbing, aching pain to his lower abdomen that has now completely resolved. He has not contacted his primary care doctor or urologist regarding today's concerns. TRAVEL OUTSIDE OF THE [place] IN LAST 30 DAYS: No - Related Data Allergies/Adverse Reactions: amoxicillin [From Augmentin] Allergy (Mild, Verified 09/25/17 10:20) Nausea clavulanic acid [From Augmentin] Allergy (Mild, Verified 09/25/17 10:20) Nausea Past Medical History - General Information source: Patient - Social History Smoking Status: Never Smoker Chew tobacco use (# tins/day): No Frequency of alcohol use: None Drug Abuse: None Family History: Reviewed & Not Pertinent Patient has suicidal ideation: No Patient has homicidal ideation: No - Past Medical History Cardiac Medical History: Reports: Hx Hypercholesterolemia, Hx Hypertension Denies: Hx Atrial Fibrillation, Hx Congestive Heart Failure, Hx Coronary Artery Disease, Hx Heart Attack, Hx Peripheral Vascular Disease, Hx Pulmonary Embolism, Hx Heart Murmur Pulmonary Medical History: Reports: Hx Pneumonia Denies: Hx Asthma, Hx Bronchitis, Hx COPD, Hx Respiratory Failure, Hx Sleep Apnea, Hx Tuberculosis Neurological Medical History: Denies: Hx Cerebrovascular Accident, Hx Seizures Renal/ Medical History: Reports: Hx Benign Prostatic Hyperplasia - ENLARGED PROSTATE. Denies: Hx End Stage Renal Disease, Hx Kidney Stones, Hx Peritoneal Dialysis Malignancy Medical History: Denies Hx Lung Cancer GI Medical History: Reports: Hx Hiatal Hernia. 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 Denies: Hx Appendectomy, Hx Bowel Surgery, Hx Cholecystectomy, Hx Colostomy, Hx Coronary Artery Bypass Graft , Hx Gastric Bypass Surgery, Hx Pacemaker, Hx Tonsillectomy - Immunizations Hx Diphtheria, Pertussis, Tetanus Vaccination: Yes Hx Pneumococcal Vaccination: 01/17/16 Review of Systems - Review of Systems Notes: Constitutional: Negative for fever. HENT: Negative for sore throat. Eyes: Negative for visual changes. Cardiovascular: Negative for chest pain. Respiratory: Negative for shortness of breath. Gastrointestinal: Negative for abdominal pain, vomiting or diarrhea. Genitourinary: Positive for urinary retention Musculoskeletal: Negative for back pain. Skin: Negative for rash. Neurological: Negative for headaches, weakness or numbness. 10 point ROS negative except as marked above and in HPI. Physical Exam - Vital signs Vitals: Temp Pulse Resp BP Pulse Ox 98 F 86 16 164/81 H 99 12/22/17 19:37 12/22/17 19:37 12/22/17 19:37 12/22/17 19:37 12/22/17 19:37 Interpretation: Hypertensive Notes: PHYSICAL EXAMINATION: GENERAL: Well-appearing, well-nourished and in no acute distress. HEAD: Atraumatic, normocephalic. EYES: Pupils equal round and reactive to light, extraocular movements intact, sclera anicteric, conjunctiva are normal. ENT: nares patent, oropharynx clear without exudates. Moist mucous membranes. NECK: Normal range of motion, supple without lymphadenopathy LUNGS: Breath sounds clear to auscultation bilaterally and equal. No wheezes rales or rhonchi. HEART: Regular rate and rhythm without murmurs ABDOMEN: Soft, nontender, midline abdominal incision with staple placement, well -healing no evidence of associated infection EXTREMITIES: Normal range of motion, no pitting or edema. No cyanosis. NEUROLOGICAL: No focal neurological deficits. Moves all extremities spontaneously and on command. PSYCH: Normal mood, normal affect. SKIN: Warm, Dry, normal turgor, no rashes or lesions noted. Course - Re-evaluation Re-evalutation: 12/22/17 21:05 Patient is an 87-year-old male who presents with acute urinary retention over the last 24 hours. The patient has a history of BPH, has had periods of urinary retention in the past but never to this degree of severity. The patient has had complete relief of his abdominal discomfort after placement of a Tapia catheter in 500 cc of urine was expressed. I have recommended that he follow-up with his urologist at his earliest ability for a trial of void to determine whether or not he will require quite chronic indwelling catheter. The remainder of the exam and history is benign, no further laboratories or assessments. At this time will discharge with return precautions and follow-up recommendations. Verbal discharge instructions given a the bedside and opportunity for questions given. Medication warnings reviewed. Patient is in agreement with this plan and has verbalized understanding of return precautions and the need for primary care follow-up in the next 24-72 hours. - Vital Signs Vital signs: Temp Pulse Resp BP Pulse Ox 98 F 86 16 164/81 H 99 12/22/17 19:37 12/22/17 19:37 12/22/17 19:37 12/22/17 19:37 12/22/17 19:37 Discharge - Discharge Clinical Impression: Prostatic hypertrophy, Urinary retention Condition: Good Disposition: HOME, SELF-CARE Additional Instructions: Please follow-up with your urologist at your earliest ability for a trial of void to see if the catheter can be removed. Please return if your catheter is not draining, you have worsening abdominal pain, develop vomiting, fever greater than 100.4 F, or have any other symptoms that are worrisome to you. Referrals: ALFONSO SALAZAR MD [Primary Care Provider] - Follow up as needed
[2017-12-22 21:36] LABS: APPEARANCE,URINE CLEAR; BILIRUBIN,URINE NEGATIVE (NEGATIVE); COLOR,URINE YELLOW; GLUCOSE, URINE NEGATIVE (NEGATIVE); KETONES,URINE NEGATIVE (NEGATIVE); LEUKOCYTE ESTERASE,URINE NEGATIVE (NEGATIVE); NITRITE,URINE NEGATIVE (NEGATIVE); PROTEIN,URINE NEGATIVE (NEGATIVE); URINE SPECIFIC GRAVITY 1.009; UROBILINOGEN,URINE NEGATIVE mg/dL (<2.0)
[2017-12-22 21:49] VITALS: BP 119/74
== END 2017-12-22 22:04 | disposition home or self-care (01) ==
LOC: ER 19:28
DX: N40.0 Benign prostatic hyperplasia without lower urinary tract symptoms (principal); R33.9 Retention of urine, unspecified; E78.00 Pure hypercholesterolemia, unspecified; I10 Essential (primary) hypertension; Z88.0 Allergy status to penicillin
CPT/HCPCS: 99283; 51702; 81001; C1758; A9270; J3490

== ENCOUNTER 2018-02-06 09:52 | Observation (INO) | payer MEDICARE ==
[2018-02-06] MEDS ORDERED: RINGERS SOLUTION,LACTATED 1,000 ML IV ONE (10:22)
--- NOTE | 2018-02-06 10:26 | ER Document Report ---
ED General - General Chief Complaint: Abdominal Problem Stated Complaint: ABDOMINAL PAIN Time Seen by Provider: 02/06/18 10:11 Mode of Arrival: Ambulatory Information source: Patient, [facility] Records Notes: 87-year-old male presents with complaint of abdominal pain and problems at the patient's ileostomy site. Patient states that he awoke this morning with bowel protruding from the ostomy. He states initially he was able to reduce it but shortly afterwards he began experiencing pain that he describes as cramping and noticed that 4-5 inches of bowel had been protruding from the stoma. Patient denies prior similar symptoms. He did undergo a sigmoid colectomy with a diverting terminal ileostomy and in November [address] Calderon. Patient states that he has had no issues since that time and is scheduled for a reversal on February 26, 2018. Patient denies any fever, chills, nausea, vomiting, chest pain, shortness of breath, blood from the ostomy. He states he has had a small output of stool. Patient denies any trauma to the abdomen, significant coughing, heavy lifting. TRAVEL OUTSIDE OF THE [place] IN LAST 30 DAYS: No - HPI Onset: This morning Onset/Duration: Gradual, Worse Quality of pain: Cramping Severity: Mild Associated symptoms: denies: Chest pain, Fever, Nausea, Vomiting, Shortness of breath, Weakness Exacerbated by: Movement Relieved by: Denies Similar symptoms previously: No Recently seen / treated by doctor: Yes - Related Data Allergies/Adverse Reactions: amoxicillin [From Augmentin] Allergy (Mild, Verified 02/06/18 09:54) Nausea clavulanic acid [From Augmentin] Allergy (Mild, Verified 02/06/18 09:54) Nausea Past Medical History - General Information source: Patient, [facility] Records - Social History Smoking Status: Never Smoker Chew tobacco use (# tins/day): No Frequency of alcohol use: Occasional Drug Abuse: None Lives with: Spouse/Significant other Family History: Reviewed & Not Pertinent Patient has suicidal ideation: No Patient has homicidal ideation: No - Past Medical History Cardiac Medical History: Reports: Hx Hypercholesterolemia, Hx Hypertension Denies: Hx Atrial Fibrillation, Hx Congestive Heart Failure, Hx Coronary Artery Disease, Hx Heart Attack, Hx Peripheral Vascular Disease, Hx Pulmonary Embolism, Hx Heart Murmur Pulmonary Medical History: Reports: Hx Pneumonia Denies: Hx Asthma, Hx Bronchitis, Hx COPD, Hx Respiratory Failure, Hx Sleep Apnea, Hx Tuberculosis Neurological Medical History: Denies: Hx Cerebrovascular Accident, Hx Seizures Renal/ Medical History: Reports: Hx Benign Prostatic Hyperplasia - ENLARGED PROSTATE. Denies: Hx End Stage Renal Disease, Hx Kidney Stones, Hx Peritoneal Dialysis Malignancy Medical History: Denies Hx Lung Cancer GI Medical History: Reports: Hx Hiatal Hernia. 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 Denies: Hx Appendectomy, Hx Bowel Surgery, Hx Cholecystectomy, Hx Colostomy, Hx Coronary Artery Bypass Graft , Hx Gastric Bypass Surgery, Hx Pacemaker, Hx Tonsillectomy - Immunizations Hx Diphtheria, Pertussis, Tetanus Vaccination: Yes Hx Pneumococcal Vaccination: 01/17/16 Review of Systems - Review of Systems Notes: REVIEW OF SYSTEMS: CONSTITUTIONAL : Denies fever, chills, or sweats. Denies recent illness. Denies weight loss, recent hospitalizations. EENT: Denies visual changes, eye pain. Denies sore throat, oral lesions, difficulty swallowing. CARDIOVASCULAR: Denies chest pain. Denies palpitations. Denies lower extremity edema. RESPIRATORY: Denies cough. Denies shortness of breath, wheezing. GASTROINTESTINAL: Denies abdominal distention. Denies nausea, vomiting, or diarrhea. Denies blood in vomitus, stools, or per rectum. Denies black, tarry stools. Denies constipation. GENITOURINARY: Denies difficulty urinating, painful urination, frequency, blood in urine, testicular pain or penile discharge. MUSCULOSKELETAL: Denies back or neck pain or stiffness. Denies joint pain or swelling. SKIN: Denies rash, lesions or sores. HEMATOLOGIC : Denies easy bruising or bleeding. LYMPHATIC: Denies swollen glands. NEUROLOGICAL: Denies confusion or altered mental status. Denies loss of consciousness. Denies dizziness or lightheadedness. Denies headache. Denies weakness or paralysis. Denies problems difficulty with ambulation, slurred speech. Denies sensory loss, numbness, or tingling. Denies seizures. PSYCHIATRIC: Denies anxiety or stress. Denies depression, suicidal ideation, or PHYSICAL EXAMINATION: GENERAL: Well-appearing, well-nourished and in no acute distress. HEAD: Atraumatic, normocephalic. EYES: Pupils equal round and reactive to light, extraocular movements intact, sclera anicteric, conjunctiva are normal. ENT: Nares patent, oropharynx clear without exudates. Moist mucous membranes. NECK: Normal range of motion, supple without lymphadenopathy LUNGS: Breath sounds clear to auscultation bilaterally and equal. No wheezes rales or rhonchi. HEART: Regular rate and rhythm without murmurs ABDOMEN: Soft, nontender, nondistended abdomen. No guarding, no rebound. 4 inches of bowel protruding from the ostomy site. Not reducible. Musculoskeletal: Normal range of motion, no pitting or edema. No cyanosis. NEUROLOGICAL: Cranial nerves grossly intact. Normal speech. Normal sensory, motor exams PSYCH: Normal mood, normal affect. SKIN: Warm, Dry, normal turgor, no rashes or lesions noted. Physical Exam - Vital signs Vitals: Temp Pulse Resp BP Pulse Ox 97.4 F 88 16 122/58 L 98 02/06/18 09:57 02/06/18 09:57 02/06/18 09:57 02/06/18 09:57 02/06/18 09:57 Course - Re-evaluation Re-evalutation: Laboratory 02/06/18 02/06/18 02/06/18 11:00 11:00 11:00 WBC 7.1 RBC 3.51 L Hgb 11.3 L Hct 34.0 L MCV 97 MCH 32.1 MCHC 33.2 RDW 17.2 H Plt Count 330 Seg Neutrophils % 73.3 Lymphocytes % 10.2 L Monocytes % 8.7 Eosinophils % 6.8 H Basophils % 1.0 Absolute Neutrophils 5.2 Absolute Lymphocytes 0.7 Absolute Monocytes 0.6 Absolute Eosinophils 0.5 Absolute Basophils 0.1 Sodium 138.6 Potassium 5.2 H Chloride 112 H Carbon Dioxide 19 L Anion Gap 8 BUN 32 H Creatinine 0.96 Est GFR ( Amer) > 60 Est GFR (Non-Af Amer) > 60 Glucose 97 Lactic Acid < 0.5 L Calcium 9.3 Total Bilirubin 0.6 Direct Bilirubin 0.4 Neonat Total Bilirubin Not Reportable Neonat Direct Bilirubin Not Reportable Neonat Indirect Bili Not Reportable AST 128 H ALT 167 H Alkaline Phosphatase 1466 H Total Protein 6.5 Albumin 3.4 L Abdomen/Pelvis CT 02/06/18 10:21 IMPRESSION: Thick walled distal ileum at the right lower quadrant ileostomy with surrounding inflammatory change in the anterior abdominal wall fat. No abscess identified. Right lower quadrant inguinal hernia containing a nonobstructed small bowel loop along the internal inguinal ring 02/06/18 10:24 87-year-old male presents with complaint of pain at his ostomy site. He states that yesterday he noticed a small protrusion of bowel that he was able to self reduce but this morning he awoke with a significant amount of bowel protruding from his stoma that is now non-reducible. He denies any prior similar symptoms , injury, coughing. He states that throughout the morning it protruded more and became painful . Patient had a colon resection with ileostomy done in [place] [address] Calderon. He states that he has had no issues since that time. He is due for a reversal on February 26, 2018. He denies any fever , chills, nausea, vomiting. Vital signs stable upon arrival. Exam significant for 4-5 inches of bowel protruding from the stoma. Benign abdominal exam. Surgical is on-call contacted and Dr. Blount recommends CT of the abdomen and pelvis with p.o. and IV contrast. Patient evaluated by surgery. Sugar and cold compress was placed on the site and reduced. Patient will be admitted to surgery for observation.. CBC shows no leukocytosis. Lactate within normal limits. CMP does show transaminitis which is the patient's baseline. 02/06/18 14:45 - Vital Signs Vital signs: Temp Pulse Resp BP Pulse Ox 97.4 F 88 13 123/81 99 02/06/18 09:57 02/06/18 09:57 02/06/18 14:01 02/06/18 14:00 02/06/18 14:01 - Laboratory Result Diagrams: 02/06/18 11:00 02/06/18 11:00 Laboratory results interpreted by me: 02/06/18 02/06/18 02/06/18 11:00 11:00 11:00 RBC 3.51 L Hgb 11.3 L Hct 34.0 L RDW 17.2 H Lymphocytes % 10.2 L Eosinophils % 6.8 H Potassium 5.2 H Chloride 112 H Carbon Dioxide 19 L BUN 32 H Lactic Acid < 0.5 L AST 128 H ALT 167 H Alkaline Phosphatase 1466 H Albumin 3.4 L - Diagnostic Test Radiology reviewed: Image reviewed, Reports reviewed Discharge - Discharge Clinical Impression: Ileostomy prolapse, incarcerated, Elevated LFTs, Abdominal cramping Condition: Good Disposition: ADMITTED INPATIENT Admitting Provider: Surgicalist Unit Admitted: Surgical Floor
[2018-02-06 11:24] LABS: ABSOLUTE BASOPHILS # (AUTO) 0.1 10^3/uL (0.0-0.2); ABSOLUTE EOSINOPHILS # (AUTO) 0.5 10^3/uL (0.0-0.6); ABSOLUTE LYMPHOCYTES (AUTO) 0.7 10^3/uL (0.5-4.7); ABSOLUTE MONOCYTES (AUTO) 0.6 10^3/uL (0.1-1.4); ABSOLUTE NEUT (AUTO) 5.2 10^3/uL (1.7-8.2); EOSINOPHILS % (AUTO) 6.8 % (0-6); HEMOGLOBIN 11.3 g/dL (13.5-17.0); LYMPHOCYTES % (AUTO) 10.2 % (13-45); MEAN CORPUSCULAR HEMOGLOBIN 32.1 pg (27.0-33.4); MEAN CORPUSCULAR HGB CONC 33.2 g/dL (32.0-36.0); MEAN CORPUSCULAR VOLUME 97 fl (80-97); MONOCYTES % (AUTO) 8.7 % (3-13); PLATELET COUNT 330 10^3/uL (150-450); RED BLOOD COUNT 3.51 10^6/uL (4.35-5.55); RED CELL DISTRIBUTION WIDTH 17.2 % (11.5-14.0); SEGMENTED NEUTROPHILS % (AUTO) 73.3 % (42-78); TOTAL CELLS COUNTED % (AUTO) 100 %; WHITE BLOOD COUNT 7.1 10^3/uL (4.0-10.5)
[2018-02-06 11:43] LABS: ALANINE AMINOTRANSFERASE 167 U/L (21-72); ALBUMIN 3.4 g/dL (3.5-5.0); ALKALINE PHOSPHATASE 1466 U/L (38-126); ANION GAP 8 (5-19); ASPARTATE AMINO TRANSFERASE 128 U/L (17-59); BILIRUBIN,DIRECT 0.4 mg/dL (0.0-0.4); BILIRUBIN,TOTAL 0.6 mg/dL (0.2-1.3); BLOOD UREA NITROGEN 32 mg/dL (7-20); CALCIUM 9.3 mg/dL (8.4-10.2); CARBON DIOXIDE 19 mmol/L (22-30); CHLORIDE 112 mmol/L (98-107); GLUCOSE 97 mg/dL (75-110); POTASSIUM 5.2 mmol/L (3.6-5.0); SODIUM 138.6 mmol/L (137-145); TOTAL PROTEIN 6.5 g/dL (6.3-8.2)
--- NOTE | 2018-02-06 13:39 | RADIOLOGY REPORT (SQ) ---
EXAM DESCRIPTION: CT ABD/PELVIS WITH IV ORAL COMPLETED DATE/TIME: 02/06/2018 1:14 pm REASON FOR STUDY: herniation of bowel through osteomy not reducible COMPARISON: PET-CT 10/01/2017 TECHNIQUE: CT scan of the abdomen and pelvis performed using helical scanning technique with dynamic intravenous contrast injection. Patient drank oral contrast. Images reviewed with lung, soft tissue , and bone windows. Reconstructed coronal and sagittal MPR images reviewed. Delayed images for evalua tion of the urinary system also acquired. All images stored on PACS. All CT scanners at this facility use dose modulation, iterative reconstruction, and/or weight based d osing when appropriate to reduce radiation dose to as low as reasonably achievable (ALARA). [facility]: Dose Right [facility]: CareDose [facility]: Dose Right [facility]: Teradose 4D [facility]: PagosOnLine CONTRAST TYPE AND DOSE: contrast/concentration: Isovue 350.00 mg/ml; Total Contrast Delivered: 77.0 ml; Total Saline Delivered: 67.0 ml RENAL FUNCTION: Creatinine 0.96 RADIATION DOSE: CT Rad equipment meets quality standard of care and radiation dose reduction techniq ues were employed. CTDIvol: 12.6 mGy. DLP: 738 mGy-cm.. LIMITATIONS: None. FINDINGS: LOWER CHEST: Large retrocardiac hiatal hernia LIVER: Normal size. There is air within nondilated intrahepatic ducts related to a patent common enrique e duct wall stent. Along the lateral edge of the common duct stent, a 2 cm fluid collection is prese nt which could be fluid in the cystic duct stump. SPLEEN: Normal size. No focal lesions. PANCREAS: No masses. No significant calcifications. No adjacent inflammation or peripancreatic fluid collections. Pancreatic duct not dilated. GALLBLADDER: Surgically absent ADRENAL GLANDS: No significant masses or asymmetry. RIGHT KIDNEY AND URETER: No solid masses. 4 cm right upper pole renal cortical cyst No significant c alcifications. No hydronephrosis or hydroureter. LEFT KIDNEY AND URETER: No solid masses. 2 cm left lower pole renal cortical cyst. No significant c alcifications. No hydronephrosis or hydroureter. AORTA AND VESSELS: No aneurysm. No dissection. Renal arteries, SMA, celiac without stenosis. RETROPERITONEUM: No retroperitoneal adenopathy, hemorrhage or masses. BOWEL AND PERITONEAL CAVITY: Patient drank oral contrast. Stomach duodenum and proximal and mid smal l bowel is unremarkable. Patient has a right lower quadrant ileostomy. There is bowel wall thickening and luminal narrowing a long the distal 15 cm of the ileum both within the peritoneal cavity, and along the abdominal wall os rock. There is inflammation with skin thickening and increased attenuation of the fat along the ante rior abdominal wall adjacent to the right lower quadrant ileostomy. No abscess is identified. In the right lower quadrant inferior and lateral to the ileostomy, there is the inguinal hernia conta ining a nonobstructed loop of small bowel. Adjacent fluid in the hernia is present with soft tissue stranding in the fat around the small bowel loop. These changes are best shown on axial images 57-65 and coronal image 20-24. Colon is decompressed. There is a row of anastomotic tonja at the rectosigmoid on axial images 71- 77. APPENDIX: Not identified PELVIS: Diffusely enlarged prostate with TUR defect. There is bladder wall thickening present. Few air bubbles are present in the urinary bladder, question recent urinary catheterization ABDOMINAL WALL: Right lower quadrant inguinal hernia containing a nonobstructed loop of small bowel a long the internal inguinal ring. BONES: Subacute L1 25% upper endplate compression fracture OTHER: No other significant finding. IMPRESSION: Thick walled distal ileum at the right lower quadrant ileostomy with surrounding inflamm atory change in the anterior abdominal wall fat. No abscess identified. Right lower quadrant inguinal hernia containing a nonobstructed small bowel loop along the internal i nguinal ring TECHNICAL DOCUMENTATION: JOB ID: [id number] Quality ID # [id number]: Final reports with documentation of one or more dose reduction techniques (e.g., Au tomated exposure control, adjustment of the mA and/or kV according to patient size, use of iterative reconstruction technique) 2010 [employer]- All Rights Reserved Reading location - IP/workstation name: [email or web address]
[2018-02-06] MEDS ORDERED: NORMAL SALINE 1000 ML 1,000 ML IV PRN (14:00)
--- NOTE | 2018-02-06 14:00 | PDOC H&P ---
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 Was apparently doing well and was scheduled for a colonoscopy followed by ileostomy takedown if colonoscopy demonstrated good healing. He noted yesterday prolapse of his ileostomy that he was able to reduce. Overnight the prolapse recurred and worsened dramatically along with stoppage of the ileostomy output. Patient notes some mild discomfort in this area but no nausea and vomiting and no abdominal pain per se. He does have a chronic recurrent right inguinal hernia that requires manual reduction frequently. Past Medical History Cardiac Medical History: Reports: Hyperlipidema, Hypertension Denies: Atrial Fibrillation, Congestive Heart Failure, Coronary Artery Disease, Myocardial Infarction, Peripheral Vascular Disease, Pulmonary Embolism , Heart Murmur Pulmonary Medical History: Reports: Pneumonia Denies: Asthma, Bronchitis, Chronic Obstructive Pulmonary Disease (COPD), Respiratory Failure, Sleep Apnea, Tuberculosis Neurological Medical History: Denies: Seizures Renal/ Medical History: Denies: End Stage Renal Disease Malignancy Medical History: Denies: Lung Cancer GI Medical History: Reports: Hiatal Hernia, Other - Sigmoid colon cancer s/p low anterior resection with diverting ileostomy Denies: Crohn's Disease, Gastroesophageal Reflux Disease Musculoskeltal Medical History: 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 Denies: Fibromyalgia Hematology: Denies: Anemia Past Surgical History Past Surgical History: Reports: Herniorrhaphy Denies: Appendectomy, Cholecystectomy, Colostomy, Coronary Artery Bypass Graft, Gastric Bypass Surgery, Pacemaker, Tonsillectomy Social History Lives with: Spouse/Significant other Smoking Status: Never Smoker Hx Recreational Drug Use: No Hx Prescription Drug Abuse: No Family History Family History: Reviewed & Not Pertinent Parental Family History Reviewed: No Children Family History Reviewed: No Sibling(s) Family History Reviewed.: No Medication/Allergy Home Medications: Terazosin HCl 10 mg PO DAILY 09/23/17 Benazepril HCl 40 mg PO DAILY 12/04/17 Loratadine 10 mg PO DAILY 12/04/17 Vit C/E/Zn/Coppr/Lutein/Zeaxan [Preservision Areds 2 Softgel] 1 each PO DAILY Allergies/Adverse Reactions: amoxicillin [From Augmentin] Allergy (Mild, Verified 02/06/18 09:54) Nausea clavulanic acid [From Augmentin] Allergy (Mild, Verified 02/06/18 09:54) Nausea Physical Exam Vital Signs: Temp Pulse Resp BP Pulse Ox 97.4 F 88 14 122/58 L 100 02/06/18 09:57 02/06/18 09:57 02/06/18 11:00 02/06/18 09:57 02/06/18 11:00 Intake & Output 02/05/18 02/06/18 02/07/18 06:59 06:59 06:59 Weight 67.3 kg General appearance: PRESENT: no acute distress, cooperative Eye exam: PRESENT: conjunctiva pink Neck exam: PRESENT: other - Supple with no masses. Respiratory exam: PRESENT: clear to auscultation enrique Cardiovascular exam: PRESENT: RRR GI/Abdominal exam: PRESENT: other - Soft, nondistended, nontender to palpation. Easily reducible right inguinal hernia. Ileostomy prolapse to about 10 cm with marked edema but no necrosis. Slight discoloration. Difficult to tell whether he has a parastomal hernia but no distinct parastomal hernia felt. Neurological exam: PRESENT: alert, awake Psychiatric exam: PRESENT: appropriate affect Skin exam: PRESENT: warm Results Laboratory Results: 02/06/18 11:00 02/06/18 11:00 02/06/18 02/06/18 02/06/18 11:00 11:00 11:00 WBC 7.1 RBC 3.51 L Hgb 11.3 L Hct 34.0 L MCV 97 MCH 32.1 MCHC 33.2 RDW 17.2 H Plt Count 330 Seg Neutrophils % 73.3 Lymphocytes % 10.2 L Monocytes % 8.7 Eosinophils % 6.8 H Basophils % 1.0 Absolute Neutrophils 5.2 Absolute Lymphocytes 0.7 Absolute Monocytes 0.6 Absolute Eosinophils 0.5 Absolute Basophils 0.1 Sodium 138.6 Potassium 5.2 H Chloride 112 H Carbon Dioxide 19 L Anion Gap 8 BUN 32 H Creatinine 0.96 Est GFR ( Amer) > 60 Est GFR (Non-Af Amer) > 60 Glucose 97 Lactic Acid < 0.5 L Calcium 9.3 Total Bilirubin 0.6 AST 128 H ALT 167 H Alkaline Phosphatase 1466 H Total Protein 6.5 Albumin 3.4 L Assessment & Plan - Diagnosis (1) Ileostomy prolapse, incarcerated Is this a current diagnosis for this admission?: Yes Plan: After application of sugar to the ileostomy along with a cold compress, the prolapse was able to be reduced. Will place the ostomy apparatus back on and apply cool compress in this area to allow remainder the edema to subside. Discussed CT scan findings with the radiology and he does have residual edema of his ostomy intraperitoneally but the radiologist does not think he has an intussusception. We will plan to admit the patient for observation today. We will try to make a improvised compressive apparatus to decrease risk of prolapse recurring while awaiting his colon workup followed by definitive ostomy takedown.
--- NOTE | 2018-02-06 14:09 | Operative Report ---
Operative Report DATE OF SURGERY: 02/06/18 PREOPERATIVE DIAGNOSIS: Incarcerated prolapsed ileostomy. POSTOPERATIVE DIAGNOSIS: Manual reduction of incarcerated prolapsed ileostomy. OPERATION: Manual reduction of incarcerated prolapsed ileostomy. SURGEON: SERA SANDOVAL ANESTHESIA: Other - None TISSUE REMOVED OR ALTERED: None COMPLICATIONS: None ESTIMATED BLOOD LOSS: None INTRAOPERATIVE FINDINGS: About 8-10 cm of ileostomy prolapse with markedly edematous wall and mucosa. PROCEDURE: Procedure was done at the patient's bedside. Sugar was applied to the ostomy and ice packs were applied around it as well. This was followed by gentle pressure and compression with resultant reduction of the 8-10 cm prolapse of the ostomy. I was able to easily digitally probe the ostomy after the reduction. There was small amount of ostomy output after the procedure. Patient tolerated procedure well with no apparent complications. A CT scan was pending after the reduction to look for any underlying pathology.
[2018-02-06] MEDS ORDERED: (PENDING PHARMACY ID) (Vit C/E/Zn/Coppr/Lutein/Zeaxan [Preservision Areds 2 Softgel] 1 EAC PO SCH (17:00)
--- NOTE | 2018-02-06 18:34 | PDOC PROGRESS REPORT ---
Subjective Progress Note for:: 02/06/18 Subjective:: No abdominal complaints. Patient very hungry. Reason For Visit: PROLAPSED ILEOSTOMY Physical Exam Vital Signs: Temp Pulse Resp BP Pulse Ox 98.5 F 80 17 131/58 H 100 02/06/18 16:36 02/06/18 16:36 02/06/18 16:36 02/06/18 16:36 02/06/18 16:36 GI/Abdominal exam: PRESENT: other - Soft, nondistended, nontender to palpation. Ostomy mucosal edema decreased. Ostomy bag has couple 100 cc of output. Results Impressions: Abdomen/Pelvis CT 02/06/18 10:21 IMPRESSION: Thick walled distal ileum at the right lower quadrant ileostomy with surrounding inflammatory change in the anterior abdominal wall fat. No abscess identified. Right lower quadrant inguinal hernia containing a nonobstructed small bowel loop along the internal inguinal ring Assessment & Plan - Diagnosis (1) Ileostomy prolapse, incarcerated Is this a current diagnosis for this admission?: Yes Plan: Looks good status post a reduction. No evidence of bowel obstruction at this point. Patient tolerating clear liquids. Will advance to a solid diet. If he continues to do well we will plan to discharge patient home in the morning.
[2018-02-07] MEDS ORDERED: (PENDING PHARMACY ID) (Benazepril Hcl [Benazepril Hcl] 40 MG) PO SCH (10:00)
[2018-02-07] MEDS ORDERED: LORATADINE 10 MG TABLET PO SCH (10:00)
[2018-02-07] MEDS ORDERED: (PENDING PHARMACY ID) (Vit C/E/Zn/Coppr/Lutein/Zeaxan [Preservision Areds 2 Softgel] 1 EAC PO SCH (10:00)
[2018-02-07] MEDS ORDERED: (PENDING PHARMACY ID) (Terazosin Hcl [Terazosin Hcl] 10 MG) PO SCH (10:00)
[2018-02-07] MEDS ORDERED: (PENDING PHARMACY ID) (Loratadine [Loratadine] 10 MG) PO SCH (10:00)
[2018-02-07] MEDS ORDERED: BENAZEPRIL HCL 20 MG TABLET PO SCH (10:00)
[2018-02-07] MEDS ORDERED: DOXAZOSIN MESYLATE 4 MG TABLET PO SCH (10:00)
--- NOTE | 2018-02-07 10:24 | PDOC PROGRESS REPORT ---
Subjective Progress Note for:: 02/07/18 Subjective:: Feels well. Tolerating diet well. Good ostomy function. Reason For Visit: PROLAPSED ILEOSTOMY Physical Exam Vital Signs: Temp Pulse Resp BP Pulse Ox 98.9 F 79 17 98/54 L 99 02/06/18 23:24 02/06/18 23:24 02/06/18 23:24 02/06/18 23:24 02/06/18 23:24 Intake & Output 02/06/18 02/07/18 02/08/18 06:59 06:59 06:59 Intake Total 440 Output Total 1330 Balance -890 General appearance: PRESENT: no acute distress, cooperative Respiratory exam: PRESENT: clear to auscultation enrique Cardiovascular exam: PRESENT: RRR GI/Abdominal exam: PRESENT: other - Soft, nondistended, nontender to palpation. Ostomy functioning very well. No prolapse. No mucosal edema. Results Impressions: Abdomen/Pelvis CT 02/06/18 10:21 IMPRESSION: Thick walled distal ileum at the right lower quadrant ileostomy with surrounding inflammatory change in the anterior abdominal wall fat. No abscess identified. Right lower quadrant inguinal hernia containing a nonobstructed small bowel loop along the internal inguinal ring Assessment & Plan - Diagnosis (1) Ileostomy prolapse, incarcerated Is this a current diagnosis for this admission?: Yes Plan: Resolved. Will discharge patient home. Compression to the ostomy at night to prevent prolapse overnight. Follow-up with Dr. Calderon as planned next week.
[2018-02-07 10:47] VITALS: BP 109/60
--- NOTE | 2018-02-07 13:38 | DISCHARGE SUMMARY E ---
Discharge Summary NAME: RAZIA ALVAREZ : 1930 AGE: 87Y ADMITTED: 02/06/2018 DISCHARGED: 02/07/2018 DISCHARGE DIAGNOSIS: Prolapsed incarcerated ileostomy stoma. PROCEDURE PERFORMED DURING HOSPITALIZATION: Prolapsed stoma reduction performed by Dr. Mariana Sandoval on 02/06/2018. HOSPITAL COURSE: The patient underwent the reduction of his prolapsed stoma. He was admitted for observation. He did well with resolution of his ostomy edema and he had resumption of good ostomy function. He was tolerating a diet well with a soft, nondistended, nontender abdomen. He had no further episodes of prolapse. The patient has now been discharged to home in good condition. He is to follow up with Dr. Calderon next week. No additional medications were given to the patient. He may follow a regular diet. He is to call immediately for irreducible recurrent stomal prolapse or emesis. Abdominal binder was prescribed for the patient with compressive padding at the ostomy at night to prevent prolapse at night. DICTATING PHYSICIAN: MARIANA SANDOVAL M.D. [id number] PHY#: [id number] ID: [id number] JOB#: [id number] ACCT: [id number] cc:Segundo GLASS M.D. MICHAEL BRUCE, PA-C TIMOTHY PATSELAS, M.D. > MTDD
== END 2018-02-07 13:36 | disposition home or self-care (01) ==
LOC: ER 09:52 → EH 14:08 → INTOOBSV 14:08 → 5 16:04
PROVIDERS: ATTEND Surgery
PROC: 0DS Gastrointestinal System, Reposition (ICD-10-PCS; principal; 2018-02-06)
DX: K94.19 Other complications of enterostomy (principal); R79.89 Other specified abnormal findings of blood chemistry; K40.91 Unilateral inguinal hernia, without obstruction or gangrene, recurrent; I10 Essential (primary) hypertension; Z90.49 Acquired absence of other specified parts of digestive tract; Z85.038 Personal history of other malignant neoplasm of large intestine; Z98.890 Other specified postprocedural states
CPT/HCPCS: 99285; 96360; 96361; 36415; 85025; 80053; 83605; 74177; 44799; G0378 ×3; A9270 ×2; J7030; J7120

== ENCOUNTER 2018-02-20 22:02 | Emergency (ER) | payer MEDICARE ==
--- NOTE | 2018-02-20 22:52 | ER Document Report ---
ED General - General Chief Complaint: Abdominal Pain Stated Complaint: PROLAPSED STOMA Time Seen by Provider: 02/20/18 22:39 Notes: Patient is a 87-year-old male who presents with complaint of prolapsed stoma location of his ileostomy. 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 He did come back on February 06 after having a prolapsed stoma that was reduced at bedside. He is due to have his revision performed next Saturday. Denies any fevers. No vomiting. Denies any blood in his stool. No other complaints at this time. TRAVEL OUTSIDE OF THE [place] IN LAST 30 DAYS: No - Related Data Allergies/Adverse Reactions: amoxicillin [From Augmentin] Allergy (Mild, Verified 02/19/18 08:53) Nausea clavulanic acid [From Augmentin] Allergy (Mild, Verified 02/19/18 08:53) Nausea Past Medical History - Social History Smoking Status: Unknown if Ever Smoked Frequency of alcohol use: None Drug Abuse: None Family History: Reviewed & Not Pertinent - Past Medical History Cardiac Medical History: Reports: Hx Hypercholesterolemia, Hx Hypertension Denies: Hx Atrial Fibrillation, Hx Congestive Heart Failure, Hx Coronary Artery Disease, Hx Heart Attack, Hx Peripheral Vascular Disease, Hx Pulmonary Embolism, Hx Heart Murmur Pulmonary Medical History: Reports: Hx Pneumonia Denies: Hx Asthma, Hx Bronchitis, Hx COPD, Hx Respiratory Failure, Hx Sleep Apnea, Hx Tuberculosis Neurological Medical History: Denies: Hx Cerebrovascular Accident, Hx Seizures Renal/ Medical History: Reports: Hx Benign Prostatic Hyperplasia - ENLARGED PROSTATE. Denies: Hx End Stage Renal Disease, Hx Kidney Stones, Hx Peritoneal Dialysis Malignancy Medical History: Denies Hx Lung Cancer GI Medical History: Reports: Hx Hiatal Hernia. 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 Denies: Hx Appendectomy, Hx Bowel Surgery, Hx Cholecystectomy, Hx Colostomy, Hx Coronary Artery Bypass Graft , Hx Gastric Bypass Surgery, Hx Pacemaker, Hx Tonsillectomy - Immunizations Hx Diphtheria, Pertussis, Tetanus Vaccination: Yes Hx Pneumococcal Vaccination: 01/17/16 Review of Systems - Review of Systems Notes: My Normal Review Basic REVIEW OF SYSTEMS: CONSTITUTIONAL : Denies fever, chills, or sweats. Denies recent illness. EENT: Denies eye, ear, throat, or mouth pain or symptoms. Denies nasal or sinus congestion. RESPIRATORY: Denies cough, cold, or chest congestion. Denies shortness of breath, difficulty breathing, or wheezing. GASTROINTESTINAL: Denies abdominal pain. Denies nausea, vomiting, or diarrhea. prolapsed ileostomy stoma SKIN: Denies rash or skin lesions. NEUROLOGICAL: Denies altered mental status or loss of consciousness. Denies headache. Denies weakness or paralysis or loss of use of either side. Denies problems with gait or speech. Denies sensory or motor loss. ALL OTHER SYSTEMS REVIEWED AND NEGATIVE. Physical Exam - Vital signs Vitals: Temp Pulse Resp BP Pulse Ox 99.5 F 110 H 18 141/62 H 98 02/20/18 22:11 02/20/18 22:11 02/20/18 22:11 02/20/18 22:11 02/20/18 22:11 - Notes Notes: General Appearance: Well nourished, alert, cooperative, no acute distress, no obvious discomfort. Well-appearing. Vitals: reviewed, See vital signs table. Head: no swelling or tenderness to the head Eyes: PERRL, EOMI, Conjuctiva clear Mouth: No decreasd moisture Lungs: No wheezing, No rales, No rhonci, No accessory muscle use, good air exchange bilaterally. Heart: Normal rate, Regular rythm, No murmur, no rub Abdomen: Normal BS, soft, No rigidity, No abdominal tenderness, patient has ileostomy prolapse. Skin: warm, dry, appropriate color, no rash Neuro: speech clear, oriented x 3, normal affect, responds appropriately to questions. Course - Re-evaluation Re-evalutation: 02/21/18 00:57 I placed sugar over the stomal prolapse. I then placed ice packs on it. I then rechecked rectally 50 minutes later. Patient still has significant amount of edema. I did try to push it in gently but was unsuccessful. I therefore called Dr. Blount, general surgeon, who agrees to come evaluate the patient. 02/21/18 00:57 02/21/18 06:24 Dr. Sanchez, general surgeon, to come down evaluate the patient. He was able to eventually get the prolapse ostomy reduced. He has been to watch patient for an hour. The patient's ostomy continue to function well not have any further prolapse and he can be discharged home. After now the patient is having good output from his ostomy and is not any further prolapse the patient feels well without any pain therefore feel he safe to be discharged home. Patient encouraged to return to ER if he has any blood from the ostomy, recurrence of prolapse, fevers, pain, or if he feels unwell. Patient agrees with plan will be discharged home. Currently is pain-free and looks very well. Dictation of this chart was performed using voice recognition software; therefore, there may be some unintended grammatical errors. - Vital Signs Vital signs: Temp Pulse Resp BP Pulse Ox 98.2 F 99 18 142/69 H 100 02/21/18 03:13 02/21/18 03:13 02/21/18 03:13 02/21/18 03:13 02/21/18 03:13 - Laboratory Result Diagrams: 02/20/18 22:34 02/20/18 22:34 Laboratory results interpreted by me: 02/20/18 02/20/18 22:34 22:34 RBC 3.35 L Hgb 11.0 L Hct 32.3 L RDW 18.3 H Seg Neuts % (Manual) 85 H Lymphocytes % (Manual) 7 L Potassium 5.2 H Chloride 111 H Carbon Dioxide 17 L BUN 26 H Direct Bilirubin 0.5 H AST 141 H ALT 153 H Alkaline Phosphatase 1333 H Discharge - Discharge Clinical Impression: Intestinal stoma prolapse Condition: Good Disposition: HOME, SELF-CARE Additional Instructions: Please return to the ER immediately if you have recurrence of prolapse of your stoma. Continue your usual stomal care.
[2018-02-21 01:20] LABS: HEMATOCRIT 32.3 % (37.9-51.0); MEAN CORPUSCULAR HEMOGLOBIN 32.8 pg (27.0-33.4); MEAN CORPUSCULAR VOLUME 96 fl (80-97); PLATELET COUNT 380 10^3/uL (150-450); RED BLOOD COUNT 3.35 10^6/uL (4.35-5.55); RED CELL DISTRIBUTION WIDTH 18.3 % (11.5-14.0); WHITE BLOOD COUNT 7.8 10^3/uL (4.0-10.5)
[2018-02-21 01:24] LABS: ALANINE AMINOTRANSFERASE 153 U/L (21-72); ALBUMIN 3.5 g/dL (3.5-5.0); ALKALINE PHOSPHATASE 1333 U/L (38-126); ANION GAP 12 (5-19); ASPARTATE AMINO TRANSFERASE 141 U/L (17-59); BILIRUBIN,DIRECT 0.5 mg/dL (0.0-0.4); BILIRUBIN,TOTAL 0.6 mg/dL (0.2-1.3); BLOOD UREA NITROGEN 26 mg/dL (7-20); CALCIUM 9.4 mg/dL (8.4-10.2); CARBON DIOXIDE 17 mmol/L (22-30); CHLORIDE 111 mmol/L (98-107); GLUCOSE 91 mg/dL (75-110); POTASSIUM 5.2 mmol/L (3.6-5.0); SODIUM 139.7 mmol/L (137-145); TOTAL PROTEIN 6.5 g/dL (6.3-8.2)
[2018-02-21 01:48] LABS: ABSOLUTE LYMPHOCYTES# (MANUAL) 0.5 10^3/uL (0.5-4.7); ABSOLUTE MONOCYTES # (MANUAL) 0.5 10^3/uL (0.1-1.4); ABSOLUTE NEUTROPHILS# (MANUAL) 6.6 10^3/uL (1.7-8.2); BASOPHILS % (MANUAL) 1 % (0-2); EOSINOPHILS % (MANUAL) 1 % (0-6); LYMPHOCYTES % (MANUAL) 7 % (13-45); MONOCYTES % (MANUAL) 6 % (3-13); SEGMENTED NEUTROPHILS % (MAN) 85 % (42-78); TOTAL CELLS COUNTED 100
[2018-02-21 01:52] LABS: ANISOCYTOSIS SLIGHT; HYPOCHROMASIA 1+; PLATELET CLUMPS PRESENT; PLATELET COMMENT ADEQUATE
[2018-02-21 01:53] LABS: PLATELET LARGE PRESENT
--- NOTE | 2018-02-21 02:00 | PDOC CONSULTATION ---
History of Present Illness Admission Date/PCP: ALFONSO SALAZAR MD Patient complains of: Ostomy prolapse. 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 Patient with history of ileostomy prolapse that was manually reduced with some difficulty in the past. Patient has had evaluation for ileostomy takedown and was noted with healed colon anastomosis and was subsequently scheduled for ileostomy takedown next week. However tonight after eating dinner he noticed ileostomy prolapse that was not reducible and subsequently came into the ER. Attempted reduction in the ER was unsuccessful and general surgery consultation being obtained. Patient has some mild abdominal discomfort. No nausea or vomiting. He has been feeling well up until the prolapse. He has a chronic right inguinal hernia that has been easily reducible. No recent changes with the inguinal hernia. Past Medical History Cardiac Medical History: Reports: Hyperlipidema, Hypertension Denies: Atrial Fibrillation, Congestive Heart Failure, Coronary Artery Disease, Myocardial Infarction, Peripheral Vascular Disease, Pulmonary Embolism , Heart Murmur Pulmonary Medical History: Reports: Pneumonia Denies: Asthma, Bronchitis, Chronic Obstructive Pulmonary Disease (COPD), Respiratory Failure, Sleep Apnea, Tuberculosis Neurological Medical History: Denies: Seizures Renal/ Medical History: Denies: End Stage Renal Disease Malignancy Medical History: Denies: Lung Cancer GI Medical History: Reports: Hiatal Hernia Denies: Crohn's Disease, Gastroesophageal Reflux Disease Musculoskeltal Medical History: 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 Denies: Fibromyalgia Hematology: Denies: Anemia Past Surgical History Past Surgical History: Reports: Herniorrhaphy, Other - Low anterior resection with diverting end ileostomy for sigmoid colon ca Denies: Appendectomy, Cholecystectomy, Colostomy, Coronary Artery Bypass Graft, Gastric Bypass Surgery, Pacemaker, Tonsillectomy Social History Smoking Status: Unknown if Ever Smoked Hx Recreational Drug Use: No Drugs: None Hx Prescription Drug Abuse: No Family History Family History: Reviewed & Not Pertinent Parental Family History Reviewed: No Children Family History Reviewed: No Sibling(s) Family History Reviewed.: No Medication/Allergy Home Medications: Benazepril HCl [Lotensin] 40 mg PO QAM 02/07/18 Loratadine [Claritin 10 mg Tablet] 10 mg PO DAILY 02/07/18 Terazosin HCl [Hytrin] 10 mg PO DAILY 02/07/18 Vit A/Vit C/Vit E/Zinc/Copper [Preservision Areds Softgel] 1 cap PO DAILY Acetaminophen [Tylenol Extra Strength 500 mg Tablet] 2 tab PO Q8 PRN 02/19/18 Allergies/Adverse Reactions: amoxicillin [From Augmentin] Allergy (Mild, Verified 02/19/18 08:53) Nausea clavulanic acid [From Augmentin] Allergy (Mild, Verified 02/19/18 08:53) Nausea Physical Exam Vital Signs: Temp Pulse Resp BP Pulse Ox 99.5 F 110 H 18 141/62 H 98 02/20/18 22:11 02/20/18 22:11 02/20/18 22:11 02/20/18 22:11 02/20/18 22:11 Intake & Output 02/19/18 02/20/18 02/21/18 06:59 06:59 06:59 Weight 69.8 kg General appearance: PRESENT: no acute distress, cooperative Respiratory exam: PRESENT: clear to auscultation enrique Cardiovascular exam: PRESENT: RRR GI/Abdominal exam: PRESENT: other - Soft, nondistended, nontender to palpation. Ileostomy in place in the right lower quadrant with ileostomy prolapse with marked edema. Right inguinal hernia not herniated at this time. Results Laboratory Results: 02/20/18 22:34 02/20/18 02/20/18 22:34 22:34 Seg Neutrophils % Not Reportable Lymphocytes % Not Reportable Monocytes % Not Reportable Eosinophils % Not Reportable Basophils % Not Reportable Absolute Neutrophils Not Reportable Absolute Lymphocytes Not Reportable Absolute Monocytes Not Reportable Absolute Eosinophils Not Reportable Absolute Basophils Not Reportable Sodium 139.7 Potassium 5.2 H Chloride 111 H Carbon Dioxide 17 L Anion Gap 12 BUN 26 H Creatinine 1.00 Est GFR ( Amer) > 60 Est GFR (Non-Af Amer) > 60 Glucose 91 Calcium 9.4 Total Bilirubin 0.6 AST 141 H ALT 153 H Alkaline Phosphatase 1333 H Total Protein 6.5 Albumin 3.5 Assessment & Plan - Diagnosis (1) Ileostomy prolapse, incarcerated Is this a current diagnosis for this admission?: Yes Plan: After placing the patient in Trendelenburg position and application of sugar and ice packs, the ileostomy prolapse was able to be reduced. The ileostomy was beginning to have output after the procedure. I have recommended to the ER to watch the patient for another hour to make sure he is having no problems and if doing well discharge patient home with following his schedule of his ileostomy takedown as planned. Patient is to call immediately for any problems. He is to avoid any strenuous activity.
--- NOTE | 2018-02-21 02:04 | Operative Report ---
Operative Report DATE OF SURGERY: 02/21/18 PREOPERATIVE DIAGNOSIS: Prolapsed ileostomy. POSTOPERATIVE DIAGNOSIS: Incarcerated prolapsed ileostomy. OPERATION: Manual reduction of incarcerated prolapsed ileostomy. SURGEON: SERA SANDOVAL ANESTHESIA: Other - None TISSUE REMOVED OR ALTERED: None COMPLICATIONS: None ESTIMATED BLOOD LOSS: None INTRAOPERATIVE FINDINGS: Incarcerated ileostomy prolapse with marked edema. PROCEDURE: Procedure was done at the patient's bedside. Previous attempt at reduction had been unsuccessful. Copious amount of sugar was applied to the ostomy and ice packs were placed around the ostomy. Patient was placed in a Trendelenburg position and the prolapse was then reduced manually with some effort. Patient tolerated procedure well with no apparent complications. The ileostomy began to demonstrate function with appropriate ileostomy output at the end of the case. Patient had no significant abdominal tenderness after the procedure. He felt much better. Patient will be observed in the emergency department for the next hour and if he continues to do well he will be discharged home. I offered the patient admission but he does not wish to be admitted if at all possible.
[2018-02-21 03:56] VITALS: BP 142/69
== END 2018-02-21 03:15 | disposition home or self-care (01) ==
LOC: ER 22:02
DX: K94.19 Other complications of enterostomy (principal); R10.9 Unspecified abdominal pain; Y83.2 Surgical operation with anastomosis, bypass or graft as the cause of abnormal reaction of the patient, or of later complication, without mention of misadventure at the time of the procedure; I10 Essential (primary) hypertension; E78.00 Pure hypercholesterolemia, unspecified; Z88.0 Allergy status to penicillin; Z85.038 Personal history of other malignant neoplasm of large intestine; E78.5 Hyperlipidemia, unspecified
CPT/HCPCS: 36415; 80053; 85025; 99284

== ENCOUNTER 2018-02-26 05:35 | Inpatient (IN) | payer MEDICARE ==
[2018-02-19 10:35] LABS: HEMATOCRIT 31.9 % (37.9-51.0); HEMOGLOBIN 10.8 g/dL (13.5-17.0); MEAN CORPUSCULAR HEMOGLOBIN 32.5 pg (27.0-33.4); MEAN CORPUSCULAR HGB CONC 33.8 g/dL (32.0-36.0); MEAN CORPUSCULAR VOLUME 96 fl (80-97); PLATELET COUNT 349 10^3/uL (150-450); RED BLOOD COUNT 3.32 10^6/uL (4.35-5.55); RED CELL DISTRIBUTION WIDTH 17.8 % (11.5-14.0); WHITE BLOOD COUNT 6.3 10^3/uL (4.0-10.5)
[2018-02-19 10:48] LABS: ANION GAP 12 (5-19); BLOOD UREA NITROGEN 24 mg/dL (7-20); CALCIUM 9.3 mg/dL (8.4-10.2); CARBON DIOXIDE 17 mmol/L (22-30); CHLORIDE 111 mmol/L (98-107); GLUCOSE 96 mg/dL (75-110); SODIUM 140.3 mmol/L (137-145)
[~2018-02-26 05:35] MED LIST changes: +(PENDING PHARMACY ID) (Benazepril Hcl [Benazepril Hcl] 40 MG) PO SCH; +(PENDING PHARMACY ID) (Loratadine [Loratadine] 10 MG) PO SCH; +(PENDING PHARMACY ID) (Terazosin Hcl [Terazosin Hcl] 10 MG) PO SCH; +(PENDING PHARMACY ID) (Vit C/E/Zn/Coppr/Lutein/Zeaxan [Preservision Areds 2 Softgel] 1 EAC PO SCH; -AMPICILLIN SODIUM/SULBACTAM NA 3 GM in NORMAL SALINE 50 ML IV PRN; +CLINDAMYCIN 600 MG/D5W RTU 600 MG/50 ML RTUPB IV PRN; +DEXTROSE 40% GEL 15 GM TUBE PO PRN; +DEXTROSE 50%-WATER 25 GM/50 ML DISP.SYRIN IV PRN; +GLUCAGON,HUMAN RECOMB 1 MG INJ SUBCUT PRN; +LIDOCAINE 0.5% INJ-PF (5 MG/ML) 50 ML SDV SUBCUT PRN; +NORMAL SALINE 1000 ML 1,000 ML IV PRN
[2018-02-26] MEDS ORDERED: CLINDAMYCIN 600 MG/D5W RTU 600 MG/50 ML RTUPB IV ONE (07:01)
[2018-02-26] MEDS ORDERED: FENTANYL CITRATE INJ/PF 250 MCG/5 ML AMPULE ONE (07:12)
[2018-02-26] MEDS ORDERED: MIDAZOLAM 2 MG/2 ML INJ ONE (07:13)
[2018-02-26] MEDS ORDERED: PROPOFOL INJ 200 MG/20 ML VIAL IV ONE (07:13)
[2018-02-26] MEDS ORDERED: HYDROMORPHONE HCL INJ/PF 2 MG/ML AMPULE ONE (07:13)
[2018-02-26] MEDS ORDERED: EPHEDRINE SULFATE INJ 50 MG/1 ML AMPULE ONE (07:13)
[2018-02-26] MEDS ORDERED: ACETAMINOPHEN 1,000 MG/100 ML RTUPB IV ONE (07:13)
[2018-02-26] MEDS ORDERED: BUPIVACAINE HCL 0.25 % INJ/PF (2.5 MG/1 ML) 30 ML VIAL ONE (08:07)
[2018-02-26] MEDS ORDERED: BUPIVACAINE HCL 0.25 % INJ/PF (2.5 MG/1 ML) 30 ML VIAL INJ ONE (08:18)
[2018-02-26] MEDS ORDERED: OXYCODONE-ACETAMINOPHEN 5-325 MG TABLET PO PRN ×2 (08:29)
[2018-02-26] MEDS ORDERED: PROMETHAZINE HCL INJ 25 MG/1 ML VIAL IV PRN ×2 (08:29)
[2018-02-26] MEDS ORDERED: MEPERIDINE HCL/PF INJ 25 MG/1 ML DISP.SYRIN IV PRN (08:29)
[2018-02-26] MEDS ORDERED: DIPHENHYDRAMINE HCL 50 MG/ML VIAL IV PRN (08:29)
[2018-02-26] MEDS ORDERED: FENTANYL CITRATE INJ/PF 100 MCG/2 ML AMPUL IV PRN ×3 (08:29)
[2018-02-26] MEDS ORDERED: MORPHINE SULFATE 10 MG/ML INJ IV PRN ×2 (08:29→09:08)
[2018-02-26] MEDS ORDERED: DEXTROSE 5%-LACTATED RINGERS 1,000 ML IV PRN (09:08)
--- NOTE | 2018-02-26 09:18 | Operative Report ---
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 Flexible colonoscopy, limited, to 60 cm. 2. Endoscopic removal of anal canal polyp with hot snare and specimen retrieval. 3. Takedown ileostomy with ilio-ileostomy stapled anastomosis SURGEON: POOL GUY 1[employer] OPERATOR: [place] ROMAN ANESTHESIA: GA TISSUE REMOVED OR ALTERED: 1. Anal canal polyp. 2. Portions of ileostomy disposed of COMPLICATIONS: None ESTIMATED BLOOD LOSS: Minimal INTRAOPERATIVE FINDINGS: See below PROCEDURE: The patient was seen in the preop holding area and taken to the main operating room and general anesthesia was induced. The patient placed in the supine position, legs frog legged. The first portion of the operation included confirmatory patency of the below low rectal anastomosis. Surgical plan surgical timeout conducted. No Tapia was inserted. A rectal exam was performed and there was mucus in the anal vault. Flexible adult colonoscope was advanced through the anal canal up through the stapled anastomosis which was at approximately 8-10 cm in the anal verge. There was a significant amount of inspissated mucus and stool. This was irrigated out. The scope was then advanced up through the left colon to approximately 60 cm. There was residual inspissated stool throughout this portion of the colon. No attempt was made to remove said stool. I backed the scope up through the colon in an anterograde fashion, again coming through the anastomosis which appeared to be widely patent. Photos were taken. The scope was withdrawn through the anastomosis, and then in the anal canal, just proximal to the Snow line was a small 2-3 mm pedunculated polyp which was photographed, and removed using the hot snare device with successful specimen retrieval. Bleeding was negligible. I readvanced the scope up through the anastomosis confirming patency and legitimacy of the staple line. Scope was withdrawn. Patient placed in the complete supine position and the second portion of the operation undertaken. The appliance bag was removed from the ileostomy and the ileostomy closed externally with a running 2-0 Prolene suture. The abdominal wall was prepped and draped sterile fashion. Skin was anesthetized with quarter percent Marcaine. The ileostomy was now taken down operatively with a #10 blade electrocautery. It was mobilized in a circumferential fashion until free entering the peritoneal cavity was achieved. Once this was accomplished, the terminal portion of the ileostomy was amputated using a YONATHAN 55 stapler blue load. We now milked into the wound the distal terminal ileum, and opened up the scar tissue along its staple line. We now brought the proximal ileum in contact with the distal ileum in a side-to- side fashion to effectuate a functional end-to-end anastomosis. 2-0 Vicryl suture was used to align the 2 portions of small bowel. Enterotomies were made with a letter cautery, and the 2 components of the YONATHAN 55 stapler were insinuated into the proximal and distal ileum. The stapler was fired, and confirmation of the common channel achieved with visual and manual inspection. We now closed the common enterotomies with a single firing of a TA 60 stapler. We were not satisfied with the opposition of the tissue so this was closed for a second time with a second firing of the reloaded TA 60 stapler. This time we were satisfied with the opposition of the tissue and there was no evidence of leak. The common channel was felt to be widely patent. There was no significant mesenteric defect closed. The anastomosis was under no tension, and we were satisfied with the appearance, and condition of the anastomosis. The anastomosis was done back into the peritoneal cavity and the abdominal wall closed with 2 PDS sutures in a vertically oriented fashion. Subcutaneous tissue irrigated and the skin closed transversely with multiple tonja. Additional Marcaine injected into the subcutaneous tissue. Sterile dressing applied. Patient tolerated procedure well, extubated, taken recovery room stable condition. The physician assistant associate full professor, Ms. Lopez, provided assistance during this case by: Assisting with retracting tissue, instillation of local anesthesia and closure of skin incisions.
[2018-02-26] MEDS ORDERED: FENTANYL CITRATE INJ/PF 100 MCG/2 ML AMPUL ONE (09:30)
[2018-02-26] MEDS: KETOROLAC TROMETHAMINE INJ/PF 30 MG/1 ML SDV IV PRN ×2 (12:25→22:10)
[2018-02-26] MEDS ORDERED: CLINDAMYCIN PHOSPHATE 600 MG in DEXTROSE 5%-WATER 100 ML IV SCH (14:00)
[2018-02-26] MEDS: CLINDAMYCIN 600 MG/D5W RTU 600 MG/50 ML RTUPB IV SCH ×2 (14:44→21:09)
[2018-02-26] MEDS ORDERED: ONDANSETRON HCL INJ/PF 4 MG/2 ML SDV ONE (15:02)
[2018-02-26] MEDS ORDERED: GLYCOPYRROLATE 1 MG/5 ML SYRINGE ONE (15:02)
[2018-02-26] MEDS ORDERED: ROCURONIUM BROMIDE INJ 50 MG/5 ML VIAL IV ONE (15:02)
[2018-02-26] MEDS ORDERED: SUCCINYLCHOLINE CHLORIDE INJ 200 MG/10 ML VIAL ONE (15:02)
[2018-02-26] MEDS ORDERED: NEOSTIGMINE METHYLSULFATE 10 MG/10 ML VIAL ONE (15:02)
[2018-02-26] MEDS ORDERED: PHENYLEPHRINE HCL INJ/PF 10 MG/1 ML SDV ONE (15:02)
[2018-02-27] MEDS: KETOROLAC TROMETHAMINE INJ/PF 30 MG/1 ML SDV IV PRN (06:04)
--- NOTE | 2018-02-27 11:01 | PDOC PROGRESS REPORT ---
Subjective Subjective:: No complaints; voiding; tolerating clear liquid; has had several small bowel movements. Reason For Visit: C18.7 MALIGNANT NEOPLASM OF SIGMOID COLON, Z93.2 Physical Exam Vital Signs: Temp Pulse Resp BP Pulse Ox 98.9 F 76 18 123/53 L 96 02/27/18 07:50 02/27/18 07:50 02/27/18 07:50 02/27/18 07:50 02/27/18 07:50 Intake & Output 02/26/18 02/27/18 02/28/18 06:59 06:59 06:59 Intake Total 0 2470 1000 Output Total 1410 Balance 0 1060 1000 Weight 77.8 kg General appearance: PRESENT: no acute distress GI/Abdominal exam: PRESENT: other - A little distended but not tympanitic nontender. Incision covered, dry and intact Results Laboratory Results: 02/19/18 09:24 02/19/18 09:24 Assessment & Plan - Diagnosis (1) Rectal carcinoma Is this a current diagnosis for this admission?: Yes Plan: Impression: Patient 1 day status post ileostomy takedown, doing well, no complications. Recommendations: 1. Keep on clear liquids today; ambulate; patient may shower 2. Will switch to p.o. pain medication.
[2018-02-27] MEDS: ACETAMINOPHEN WITH CODEINE #3 TABLET PO PRN ×2 (12:50→22:26)
--- NOTE | 2018-02-28 14:57 | PDOC PROGRESS REPORT ---
Subjective Subjective:: Patient doing well, no complaints, no flatus until this afternoon and then had multiple loose bowel movements with gas. Tolerating clear liquids. Voiding. Reason For Visit: C18.7 MALIGNANT NEOPLASM OF SIGMOID COLON Physical Exam Vital Signs: Temp Pulse Resp BP Pulse Ox 100.1 F 76 18 126/67 H 96 02/28/18 11:18 02/28/18 11:18 02/28/18 11:18 02/28/18 11:18 02/28/18 11:18 Intake & Output 02/27/18 02/28/18 03/01/18 06:59 06:59 06:59 Intake Total 2470 2974 Output Total 1410 2350 Balance 1060 624 Weight 77.8 kg 77.4 kg General appearance: PRESENT: no acute distress GI/Abdominal exam: PRESENT: other - Abdomen soft original operative dressing removed removed; minimal abdominal distention. Results Laboratory Results: 02/19/18 09:24 02/19/18 09:24 Assessment & Plan - Diagnosis (1) Rectal carcinoma Is this a current diagnosis for this admission?: Yes (2) Ileostomy prolapse, incarcerated Is this a current diagnosis for this admission?: Yes Plan: Impression: Patient is 2 days status post ileostomy takedown, doing well, slowly tolerating diet advancement. Recommendations: 1. Slowly advance diet as tolerated 2. Hep-Lock IV 3. Anticipate discharge home the next 24 hours.
[2018-03-01] MEDS: DOXAZOSIN MESYLATE 4 MG TABLET PO SCH (09:44)
[2018-03-01] MEDS: BENAZEPRIL HCL 20 MG TABLET PO SCH (09:45)
[2018-03-01] MEDS: LORATADINE 10 MG TABLET PO SCH (09:45)
[2018-03-01] MEDS ORDERED: (PENDING PHARMACY ID) (Terazosin Hcl [Hytrin] 10 MG) PO SCH (10:00)
[2018-03-01] MEDS ORDERED: (PENDING PHARMACY ID) (Vit A/Vit C/Vit E/Zinc/Copper [Preservision Areds Softgel] 1 CAP) PO SCH (10:00)
--- NOTE | 2018-03-01 19:33 | PDOC PROGRESS REPORT ---
Subjective Progress Note for:: 03/01/18 Subjective:: diarrhea Reason For Visit: C18.7 MALIGNANT NEOPLASM OF SIGMOID COLON Physical Exam Vital Signs: Temp Pulse Resp BP Pulse Ox 97.9 F 73 22 H 97/50 L 100 03/01/18 17:19 03/01/18 17:19 03/01/18 17:19 03/01/18 17:19 03/01/18 17:19 Intake & Output 02/28/18 03/01/18 03/02/18 06:59 06:59 06:59 Intake Total 2974 1271 459 Output Total 2350 1050 Balance 624 221 459 Weight 77.4 kg Exam: abdomen is soft and non tender. Incision site looks clean and dry. Results Laboratory Results: 02/19/18 09:24 02/19/18 09:24 Assessment & Plan - Time Time Spent with patient: 15-24 minutes - Plan Summary Plan Summary: Hesitant to go home today becuse of diarrhea q hr. Will give a dose of Imodium. Hopefully diarrhea will slow down and can be discharge tomorrow
[2018-03-01] MEDS ORDERED: LOPERAMIDE HCL 2 MG CAPSULE PO ONE (20:15)
[2018-03-02 05:28] LABS: ANION GAP 7 (5-19); BLOOD UREA NITROGEN 29 mg/dL (7-20); CALCIUM 8.5 mg/dL (8.4-10.2); CARBON DIOXIDE 20 mmol/L (22-30); CHLORIDE 108 mmol/L (98-107); GLUCOSE 90 mg/dL (75-110); POTASSIUM 3.8 mmol/L (3.6-5.0); SODIUM 134.5 mmol/L (137-145)
[2018-03-02] MEDS ORDERED: (PENDING PHARMACY ID) (Benazepril Hcl [Lotensin] 40 MG) PO SCH (08:00)
[2018-03-02] MEDS: BENAZEPRIL HCL 20 MG TABLET PO SCH (08:45)
[2018-03-02] MEDS: LORATADINE 10 MG TABLET PO SCH (09:49)
[2018-03-02] MEDS: DOXAZOSIN MESYLATE 4 MG TABLET PO SCH (09:53)
[2018-03-02 10:03] VITALS: BP 112/66
--- NOTE | 2018-03-03 08:22 | DISCHARGE SUMMARY E ---
Discharge Summary NAME: RAZIA ALVAREZ : 1930 AGE: 87Y ADMITTED: 02/26/2018 DISCHARGED: 03/02/2018 SUMMARY OF HOSPITALIZATION: The patient is an 87-year-old male who is brought to Ambulatory Surgery for interval ileostomy takedown. The procedure was performed and dictated by Dr. Calderon. He tolerated the procedure well without any postoperative complications. The patient did have 1 or 2 episodes of diarrhea but these resolved spontaneously. By the fourth postoperative day he was felt to have received maximum benefit from hospitalization and was discharged home. FINAL DIAGNOSIS: Rectal carcinoma, status post low anterior resection, now with ileostomy takedown by Dr. Calderon. DISPOSITION: The patient will be discharged home in the care of his family to follow up with Dr. Calderon, [facility] in 1 week; take Motrin or Tylenol p.r.n. pain. DICTATING PHYSICIAN: POOL CALDERON M.D. [id number] PHY#: [id number] ID: [id number] JOB#: [id number] ACCT: [id number] cc:POOL CALDERON M.D. >
== END 2018-03-02 13:09 | disposition home or self-care (01) | DRG 331 ==
LOC: INOR 05:35 → 5 10:26
PROVIDERS: ADMIT Surgery; ATTEND Surgery
PROC: 0DBQ8ZX Excision of Anus, Via Natural or Artificial Opening Endoscopic, Diagnostic (ICD-10-PCS; 2018-02-26)
PROC: 0DBB0ZZ Excision of Ileum, Open Approach (ICD-10-PCS; principal; 2018-02-26 07:30)
PROC: 0WQF0ZZ Repair Abdominal Wall, Open Approach (ICD-10-PCS; 2018-02-26 07:30)
DX: Z43.2 Encounter for attention to ileostomy (principal); K62.0 Anal polyp; I10 Essential (primary) hypertension; M19.90 Unspecified osteoarthritis, unspecified site; Z82.49 Family history of ischemic heart disease and other diseases of the circulatory system; Z90.49 Acquired absence of other specified parts of digestive tract; Z88.0 Allergy status to penicillin; Z85.820 Personal history of malignant melanoma of skin; Z85.038 Personal history of other malignant neoplasm of large intestine
CPT/HCPCS: 36415; 790; 80048; 85027; 87493; 88304; 94799; J0131; J0330; J1170; J1885; J2250; J2370; J2405; J2704; J3010; J3490

== ENCOUNTER 2018-06-13 07:51 | Day surgery (SDC) | payer MEDICARE ==
[~2018-06-13 07:51] MED LIST changes: -(PENDING PHARMACY ID) (Benazepril Hcl [Benazepril Hcl] 40 MG) PO SCH; -(PENDING PHARMACY ID) (Loratadine [Loratadine] 10 MG) PO SCH; -(PENDING PHARMACY ID) (Terazosin Hcl [Terazosin Hcl] 10 MG) PO SCH; -(PENDING PHARMACY ID) (Vit C/E/Zn/Coppr/Lutein/Zeaxan [Preservision Areds 2 Softgel] 1 EAC PO SCH; -CLINDAMYCIN 600 MG/D5W RTU 600 MG/50 ML RTUPB IV PRN; -DEXTROSE 40% GEL 15 GM TUBE PO PRN; -DEXTROSE 50%-WATER 25 GM/50 ML DISP.SYRIN IV PRN; +DIPHENHYDRAMINE HCL 50 MG/ML VIAL ONE; +EPINEPHRINE INJ 1 MG/10 ML DISP.SYRIN ONE; +FENTANYL CITRATE INJ/PF 100 MCG/2 ML AMPUL ONE; +FLUMAZENIL INJ 0.5 MG/5 ML VIAL ONE; +GLUCAGON,HUMAN RECOMB 1 MG INJ ONE; -GLUCAGON,HUMAN RECOMB 1 MG INJ SUBCUT PRN; -LACTATED RINGERS 1000 ML IV PRN; -LIDOCAINE 0.5% INJ-PF (5 MG/ML) 50 ML SDV SUBCUT PRN; +MIDAZOLAM 2 MG/2 ML INJ ONE; +NALOXONE HCL INJ/PF 0.4 MG/1 ML SDV ONE; -NORMAL SALINE 1000 ML 1,000 ML IV PRN; +ONDANSETRON HCL INJ/PF 4 MG/2 ML SDV ONE
[2018-06-13 09:42] VITALS: BP 154/63
--- NOTE | 2018-06-13 12:41 | Operative Report ---
Operative Report DATE OF SURGERY: 06/13/18 Operative Report: The risks, benefits and alternatives of the procedure including the risk of bleeding, perforation requiring surgery have been explained to the patient in detail and informed consent has been obtained. The patient is taken back to the endoscopy suite and placed in the left, lateral decubital position. Timeout was called. Conscious sedation medications are provided. Rectal examination is done which did not reveal any masses, tears or fissures. An Olympus videoscope was introduced into the patient's rectum. The scope was then carefully advanced to the cecum. The cecum was identified by the usual anatomical landmarks of the ileocecal valve as well as the appendiceal office. Photodocumentation is obtained. The scope was then sequentially pulled back through the various segments of the colon to obtain longitudinal as well as concentric views of the colon ,previous surgical site is noted ,retroflexion is noted. PREOPERATIVE DIAGNOSIS: Personal history of colorectal cancer for surveillance POSTOPERATIVE DIAGNOSIS: Hepatic flexure polypremoved via snare polypectomy and retrieved. Diverticulosis without any evidence of diverticulitis. Internal hemorrhoids OPERATION: Colonoscopy with snare polypectomy SURGEON: ABEL MARR ANESTHESIA: Moderate Sedation - 2 mg of Versed, 25 mcg of fentanyl. Conscious sedation monitoring time 30 minutes. TISSUE REMOVED OR ALTERED: As noted above. COMPLICATIONS: None. ESTIMATED BLOOD LOSS: None. INTRAOPERATIVE FINDINGS: As noted above. PROCEDURE: Patient tolerated the procedure well No immediate postprocedure complications are noted. Patient discharged in good condition. Discharge date 06/13/2018. Discharge diet: Regular. Discharge activity: Regular. 2-3-week follow-up to discuss findings. Patient is instructed to call the office or proceed to the emergency room should there be any further problems or questions. Wait on the pathology. 1 year surveillance due to his personal history of colorectal cancer with the finding of a polyp.
== END 2018-06-13 09:31 | disposition home or self-care (01) ==
LOC: END 07:51
PROVIDERS: ATTEND Internal Medicine Gastroenterology
DX: Z12.11 Encounter for screening for malignant neoplasm of colon (principal); K57.30 Diverticulosis of large intestine without perforation or abscess without bleeding; K64.8 Other hemorrhoids; K63.5 Polyp of colon; Z85.038 Personal history of other malignant neoplasm of large intestine; I10 Essential (primary) hypertension; N40.0 Benign prostatic hyperplasia without lower urinary tract symptoms; Z79.899 Other long term (current) drug therapy; Z88.0 Allergy status to penicillin
CPT/HCPCS: 45385; 88305 ×2; J2250; J3010; J0171; J1200; J1610; J2310; J2405; J3490